=== PATIENT | male | born 1975 | race African-American/Black ===

== ENCOUNTER 2019-03-03 09:42 | Inpatient (IN) | payer MEDICARE ==
[2019-03-03] VITALS (7 sets, daily range): BP systolic 120–136; BP diastolic 88–101; Ht 170.2 cm; Wt 100.0 kg
[~2019-03-03] VITALS: Ht 170.2 cm; Wt 100.0 kg
--- NOTE | ~2019-03-03 | EC ---
PATIENT:MAIRA LYN DATE OF SERVICE: 03/03/19 SEX: M MEDICAL RECORD: [id number] DATE OF : [birth year] LOCATION:D.MS [place] AGE OF PATIENT: 43 ADMISSION DATE: 03/03/19 REFERRING PHYSICIAN: INTERPRETING PHYSICIAN: ALOK KRAFT MD ECHOCARDIOGRAM REPORT ECHO CHARGES 4 ECHO COMPLETE Date: 03/06/19 CLINICAL DIAGNOSIS: IV DRUG USER ECHOCARDIOGRAPHIC MEASUREMENTS (adult normal given) AC root (d.<3.7cm) 3.4 cm LV Septum d (<1.2 cm> 1.1 cm Valve Excursion 1.4 cm LV Septum (systole) 1.2 cm Left Atria (s.<4.0cm> 4.3 cm LVPW d(<1.2cm) 1.5 cm RV (d.<2.3cm) 3.4 cm LVPW (sytole) 1.8 cm LV diastole(<5.6CM) 5.7 cm MV E-F(>70mm/sec) cm LV systole 5.0 cm LVOT Diameter 1.9 cm MV exc.(>10mm) cm Est.ejection fraction (50-75%) % DOPPLER: LVIT cm/sec A 51 cm/sec E 36 cm/sec LA cm/sec RVSP 44.8 mmHg LVOT 45 cm/sec AOP1/2T m/s Asc. Ao 183 cm/sec RVOT 44 cm/sec RA cm/sec PA 75 cm/sec AV Gradient Peak 13.4 mmHg AV Mean 10.8 mmHg AV Area 0.3 cm MV Gradient Peak 2.0 mmHg MV Mean 0.8 mmHg MV Area cm COMMENTS: Railroad Construction Director: Jerri [facility] Coffee Plantation Worker: 1 Dr. Kraft TAPE# PACS Pericardial Effusion N DATE OF SERVICE: 03/06/2019 PROCEDURE: Echocardiogram. FINDINGS: 1. Left ventricular chamber size is dilated. Left ventricular systolic function is markedly reduced, overall ejection fraction 10% to 15%. 2. Left atrium is enlarged at 4.3 cm. Right atrium and right ventricular chamber sizes are as well moderately dilated. 3. Valvular structures have normal structure and motion. No evidence of ECHOCARDIOGRAM REPORT [id number] MAIRA LYN vegetative endocarditis. 4. Doppler interrogation reveals trace mitral regurgitation, moderate tricuspid regurgitation, no other valvular insufficiency or stenosis. Pulmonary systolic pressure is estimated at 45 mmHg. 5. Left ventricular thrombus is present at the apical segment. TRANSINT:[id number] Voice Confirmation ID: [id number] DOCUMENT ID: [id number] ALOK KRAFT MD CC: [id number] DICTATION DATE: 03/07/19 1245 ESTATE ADMINISTRATOR: 03/07/19 1310 DIS IN 03/07/19 [facility] [address] [place] [address]
[2019-03-03 10:41] LABS: BASOPHILS 0.3 % (0-2); EOSINOPHILS 1.3 % (0-7); HEMATOCRIT 41.9 % (42.0-54.0); IMMATURE GRANULOCYTES 0.3 % (0-5); LYMPHOCYTES 31.6 % (15-50); MCH 28.2 pg (26.0-34.0); MCHC 33.4 g/dL (31.0-37.0); MCV 84.5 fL (80.0-100.0); MEAN PLATELET VOLUME 11.1 fL (7.4-10.4); MONOCYTES 7.2 % (2-11); NEUTROPHILS 59.3 % (40-80); PLATELET COUNT 185 10x3/uL (130-400); RBC 4.96 10x6/uL (4.20-6.10); RDW 15.9 % (11.5-14.5); WBC 10.2 10x3/uL (4.8-10.8)
[2019-03-03 10:50] LABS: ALBUMIN 2.6 g/dL (3.4-5.0); ANION GAP 11.1 mmol/L (8-16); BILIRUBIN - TOTAL 0.54 mg/dL (0.2-1.3); CALCIUM 8.1 mg/dL (8.5-10.1); CARBON DIOXIDE 26.8 mmol/L (21.0-32.0); CREATININE - SERUM 1.4 mg/dL (0.6-1.3); POTASSIUM - SERUM 4.9 mmol/L (3.5-5.1)
[2019-03-03 11:04] LABS: APPEARANCE CLEAR (CLEAR); BILIRUBIN NEGATIVE (NEGATIVE); COLOR YELLOW (YELLOW); GLUCOSE NEGATIVE (NEGATIVE); KETONE NEGATIVE (NEGATIVE); NITRITE NEGATIVE (NEGATIVE); PROTEIN NEGATIVE (NEGATIVE)
[2019-03-03 11:05] LABS: AMORPHOUS SEDIMENT <1+ /lpf (NONE SEEN); EPITHELIAL CELLS 0-5 /hpf (0-5); RED CELLS - URINE 0-5 /hpf (0-5)
[2019-03-03 11:09] LABS: TROPONIN-I 1.039 ng/mL (0.000-0.060)
[2019-03-03] MEDS ORDERED: BENZTROPINE MESY1 MG PO (12:55)
[2019-03-03] MEDS ORDERED: HALOPERIDOL2 MG PO (12:56)
[2019-03-03] MEDS ORDERED: PRINIVIL10 MG PO (12:56)
[2019-03-03] MEDS ORDERED: SEROQUEL50 MG PO (12:58)
[2019-03-03] MEDS ORDERED: ZYPREXA15 MG PO (12:58)
--- NOTE | 2019-03-03 19:00 | NUR ---
REPORT RECEIVED AND CARE OF PT ASSUMED. PT LYING IN SUPINE POSITION WITH EYES CLOSED. IV IN RIGHT AC PATENT WITH NS INFUSING AT 100 ML/HR. WILL MONITOR FOR NEEDS.
--- NOTE | 2019-03-03 20:17 | NUR ---
HS MEDICATION GIVEN. FSBS 131 THIS CHECK. GAVE VANILLA MILKSHAKE FOR HS SNACK. WILL CONTINUE TO MONITOR FOR NEEDS.
--- NOTE | 2019-03-03 23:15 | NUR ---
PT ASSISTED WITH SET UP TO GIVE HIMSELF A SPONGE BATH.
--- NOTE | 2019-03-04 00:20 | NUR ---
GAVE NORCO 5 PO PER PRN ORDER FOR C/O CHRONIC PAIN "ALL OVER". WILL MONITOR FOR EFFECTIVENESS.
[2019-03-04 00:57] VITALS: BP 114/98
--- NOTE | 2019-03-04 02:32 | NUR ---
PT C/O SHORTNESS OF BREATH. SPO2 99% ON ROOM AIR. CALLED RT AND REQUESTED UPDRAFT TREATMENT.
--- NOTE | 2019-03-04 07:37 | NUR ---
ALERT AND ORIENTED. LUNGS CLEAR BILATERALLY IN ALL AMAYA. HEART SOUNDS S1 AND S2 HEARD IN ALL AMAYA. BOWEL SOUNDS ACTIVE X 4. SKIN INTACT WITHOUT REDNESS. DENIES PAIN. DENIES NEEDS. IV TO RIGHT AC PATENT WITHOUT REDNESS. BED LOW. CALL HENAO AND PERSONAL ITEMS IN REACH. WILL CONTINUE TO MONITOR.
--- NOTE | 2019-03-04 08:00 | NUR ---
LYING IN BED,WITHOUT NEEDS.CALL LIGHT IN REACH
[2019-03-04 08:46] LABS: BASOPHILS 0.1 % (0-2); EOSINOPHILS 0 % (0-7); HEMATOCRIT 43.7 % (42.0-54.0); IMMATURE GRANULOCYTES 0.7 % (0-5); LYMPHOCYTES 12.6 % (15-50); MCH 28.6 pg (26.0-34.0); MCHC 34.3 g/dL (31.0-37.0); MCV 83.4 fL (80.0-100.0); MEAN PLATELET VOLUME 10.9 fL (7.4-10.4); MONOCYTES 7.2 % (2-11); NEUTROPHILS 79.4 % (40-80); RBC 5.24 10x6/uL (4.20-6.10); RDW 15.4 % (11.5-14.5)
[2019-03-04 08:50] LABS: ANION GAP 15.7 mmol/L (8-16); CARBON DIOXIDE 20.3 mmol/L (21.0-32.0); CREATININE - SERUM 1.3 mg/dL (0.6-1.3)
[2019-03-04 09:06] LABS: PLATELET COUNT 144 10x3/uL (130-400); WBC 14.4 10x3/uL (4.8-10.8)
[2019-03-04 09:11] VITALS: BP 138/105
--- NOTE | 2019-03-04 10:53 | NUR ---
RESTING IN BED. DENIES PAIN. DENIES NEEDS. WILL CONTINUE TO MONITOR.
[2019-03-04 11:52] VITALS: BP 142/100
--- NOTE | 2019-03-04 12:10 | NUR ---
PT C/O OF GENERALIZED PAIN RATING 10/10 ON PAIN SCALE. WAS MEDICATED WITH NORCO PER ORDERS. C/L IN REACH AT BEDSIDE.
--- NOTE | 2019-03-04 12:30 | MORECARE ---
CASE MANAGEMENT DISCHARGE SUMMARY PATIENT: MAIRA LYN UNIT: [id number] ADM DATE: 03/03/19 AGE: 43 : [birth year] SEX: M ROOM/BED: D.2229 AUTHOR: CARIE ENGLAND PHYSICIAN: REFERRING PHYSICIAN: JULITA CORTEZ MD DATE OF SERVICE: 03/04/19 Discharge Plan Patient Name: MAIRA LYN [facility] [facility] 1975 Planned Disposition: Home Anticipated Discharge Date: Discharge Date: Expected LOS: Initial Reviewer: ANA MARÍA Initial Review Date: 03/04/2019 Generated: 03/04/19 1:30 pm DCPIA - Discharge Planning Initial Assessment Updated by ANA MARÍA: Hamida Borrero on 03/04/19 12:29 pm * Is the patient Alert and Oriented? Yes * How many steps to enter\exit or inside your home? * PCP NONE * Pharmacy [facility] * Preadmission Environment Home with Family * ADLs Independent * List name and contact numbers for known caregivers / representatives who currently or will assist patient after discharge: SISTER KAILEE \RIKI * Verbal permission to speak to the caregivers and representatives has been obtained from the patient. N/A * Additional services required to return to the preadmission environment? No * Can the patient safely return to the preadmission environment? Yes * Has this patient been hospitalized within the prior 30 days at any hospital? No Patient Name: MAIRA LYN Page [phone] at 1230 All edits/amendments must be made on the electronic document DICTATION DATE: 03/04/19 1230 PRICING ASSOCIATE: JOSE 03/04/19 1230 RPT#: [id number] DC DATE: STATUS: ADM IN [facility] [address] [place] [address] END OF REPORT
--- NOTE | 2019-03-04 12:38 | MORECARE ---
CASE MANAGEMENT DISCHARGE SUMMARY PATIENT: MAIRA LYN UNIT: [id number] ADM DATE: 03/03/19 AGE: 43 : 76 SEX: M ROOM/BED: D.2229 AUTHOR: TOMÁSDOC PHYSICIAN: REFERRING PHYSICIAN: JULITA CORTEZ MD DATE OF SERVICE: 03/04/19 Discharge Plan Patient Name: MAIRA LYN Facility: [facility] : 1975 Planned Disposition: Home Anticipated Discharge Date: Discharge Date: Expected LOS: Initial Reviewer: [email or web address] Initial Review Date: 03/04/2019 Generated: 03/04/19 1:38 pm Comments DCP- Discharge Planning Updated by [email or web address]: Hamida Borrero on 03/04/19 11:[address] Patient Name: MAIRA LYN Admission Status: ER Accout number: [id number] Admission Date: 03-03-2019 : 1975 Admission Diagnosis: Attending: JULITA CORTEZ Current LOS: 1 Anticipated DC Date: Planned Disposition: Home Primary Insurance: MEDICARE A & B Discharge Planning Comments: CM MET WITH PT AFTER VERBAL CONSENT TO DO INITIAL CM ASSESSMENT. CM EXPLAINED THE ROLE OF A CM AND SERVICES AVAILABLE LIKE HOME HEALTH, REHAB AND DME. PT STATED HE WILL RETURN HOME WITH . PT FEELS THIS IS A SAFE DC PLAN AND DENIES AND CM NEEDS AT THIS TIME. STATES HE USES NO DME AND TAKES CARE OF HIMSELF. CM WILL CONTINUE TO FOLLOW. Medical Historian: Hamida Borrero DCPIA - Discharge Planning Initial Assessment Updated by [email or web address]: Hamida Borrero on 03/04/19 12:31 pm * Is the patient Alert and Oriented? Yes * How many steps to enter\exit or inside your home? * PCP NONE * Pharmacy [facility] * Preadmission Environment Home with Family * ADLs Independent * List name and contact numbers for known caregivers / representatives who currently or will assist patient after discharge: SISTER KAILEE \RIKI * Verbal permission to speak to the caregivers and representatives has been obtained from the patient. N/A * Additional services required to return to the preadmission environment? No * Can the patient safely return to the preadmission environment? Yes * Has this patient been hospitalized within the prior 30 days at any hospital? No Last DP export: 03/04/19 11:30 a Patient Name: MAIRA LYN Page [phone] at 1238 All edits/amendments must be made on the electronic document DICTATION DATE: 03/04/19 1238 WOOL DYER: JOSE 03/04/19 1238 RPT#: [id number] DC DATE: STATUS: ADM IN [facility] [address] [place] [address] END OF REPORT
--- NOTE | 2019-03-04 14:36 | NUR ---
RESTING IN BED. DENIES NEEDS. WILL CONTINUE TO MONITOR.
--- NOTE | 2019-03-04 16:11 | NUR ---
PATIENT GIVEN WARM PRUNE JUICE PER REQUEST TO HELP BOWELS MOVE.
--- NOTE | 2019-03-04 16:48 | NUR ---
BLOOD SUGAR 62. REFUSED PEANUT BUTTER CRACKERS. STATES WILL DRINK MILK. WILL CONTINUE TO MONITOR.
--- NOTE | 2019-03-04 17:22 | NUR ---
REFUSED BLOOD SUGAR RECHECK. STATES SUGAR RUNS LOW AND IS DRINKING MILK. YELLING FOR PAIN MEDICATION. NOT DUE UNTIL 1845. EDUCATION PROVIDED.
--- NOTE | 2019-03-04 17:27 | NUR ---
SITTING IN CHAIR AT BEDSIDE. PLACED ON FALL PRECAUTIONS. CALL HENAO AND PERSONAL ITEMS IN REACH. WILL CONTINUE TO MONITOR.
--- NOTE | 2019-03-04 18:47 | NUR ---
PATIENT SLEEPING AFTER NO REST ALL DAY. DID NOT WANT TO WAKE FOR PAIN PILL. WILL GIVE NEXT DOSE.
--- NOTE | 2019-03-04 20:35 | NUR ---
REC'D. CHGE OF SHIFT VOMITTING IN FLOOR STATES HOLD ME PLEASE.COMPLETE BATH LINENS CHGED.EMESIS LITE DEEPAK MELGOZA WILL CONTINUE TO MONITOR FOR ANY CHGES AND FOLLOW CURRENT PLAN OF CARE
[2019-03-04 21:44] VITALS: BP 145/103
[2019-03-05 01:11] VITALS: BP 145/99
--- NOTE | 2019-03-05 07:15 | NUR ---
ALERT AND ORIENTED. LUNGS CLEAR BILATERALLY IN ALL AMAYA. HEART SOUNDS S1 AND S2 HEARD IN ALL AMAYA. BOWEL SOUNDS ACTIVE X 4. SKIN INTACT WITHOUT REDNESS. RIGHT ANKLE SWOLLEN. STATES PAIN IN ABD. ABD US THIS AM. DENIES NEEDS. BED LOW. FALL PRECAUTIONS IN PLACE. CALL HENAO AND PERSONAL ITEMS IN REACH. WILL CONTINUE TO MONITOR.
[2019-03-05 07:44] LABS: BASOPHILS 0.2 % (0-2); EOSINOPHILS 0.1 % (0-7); HEMATOCRIT 41.5 % (42.0-54.0); HEMOGLOBIN 14.1 g/dL (13.5-17.5); IMMATURE GRANULOCYTES 0.5 % (0-5); LYMPHOCYTES 25.5 % (15-50); MCH 28.4 pg (26.0-34.0); MCV 83.5 fL (80.0-100.0); MEAN PLATELET VOLUME 11.8 fL (7.4-10.4); MONOCYTES 9.4 % (2-11); NEUTROPHILS 64.3 % (40-80); PLATELET COUNT 119 10x3/uL (130-400); RBC 4.97 10x6/uL (4.20-6.10); RDW 15.6 % (11.5-14.5); WBC 11.6 10x3/uL (4.8-10.8)
[2019-03-05 08:43] LABS: ALBUMIN 2.5 g/dL (3.4-5.0); ANION GAP 18.3 mmol/L (8-16); BILIRUBIN - TOTAL 1.75 mg/dL (0.2-1.3); CALCIUM 8.1 mg/dL (8.5-10.1); CARBON DIOXIDE 18.7 mmol/L (21.0-32.0); CREATININE - SERUM 1.8 mg/dL (0.6-1.3); PROTEIN - SERUM 5.5 g/dL (6.4-8.2)
[2019-03-05 08:56] VITALS: BP 128/93
--- NOTE | 2019-03-05 09:36 | NUR ---
PATIENT SLEEPING. WILL CONTINUE TO MONITOR.
--- NOTE | 2019-03-05 10:34 | NUR ---
CALLED ULTRASOUND PER PATIENT REQUEST TO ASK TIME FOR ULTRASOUND. STATED WILL BE BEFORE LUNCH.
--- NOTE | 2019-03-05 12:30 | NUR ---
IV TO RIGHT AC PULLED OUT. PATIENT STATED COULD ATTEMPT TO RESITE "LATER."
[2019-03-05 12:50] LABS: ALBUMIN 2.4 g/dL (3.4-5.0); ANION GAP 15.1 mmol/L (8-16); BILIRUBIN - TOTAL 1.53 mg/dL (0.2-1.3); CARBON DIOXIDE 20.5 mmol/L (21.0-32.0); CREATININE - SERUM 1.7 mg/dL (0.6-1.3); POTASSIUM - SERUM 5.6 mmol/L (3.5-5.1)
--- NOTE | 2019-03-05 13:22 | NUR ---
MARKY CARABALLO ATTEMPTED TO SITE PATIENT'S IV. PATIENT STATED CAN TRY AFTER HIS NAP. WILL TRY AGAIN LATER.
--- NOTE | 2019-03-05 14:14 | NUR ---
REFUSES NEW IV. STATES CAN TRY TOMORROW. EDUCATION PROVIDED THAT PATIENT HAS ANTIBITOTICS THROUGH IV. STATES NOT GETTING NEW IV TODAY.
[2019-03-05 14:20] LABS: APTT 32.4 SECONDS (22.8-39.4); INR 2.77 (0.85-1.17); PROTIME 28.5 SECONDS (11.6-15.0)
--- NOTE | 2019-03-05 14:21 | NUR ---
RESTING IN BED. DENIES NEEDS. WILL CONTINUE TO MONITOR.
--- NOTE | 2019-03-05 14:27 | NUR ---
EDUCATION PROVIDED ON NEED FOR UA. STATED WILL USE URINAL AND IS NOT GETTING IN AND OUT CATH. TWO CUPS WATER AND URINAL IN ROOM.
--- NOTE | 2019-03-05 14:54 | NUR ---
LAB STATED COULD NOT FIND UDS ORDER. REORDER PLACED AND COLLECTED.
[2019-03-05 15:07] LABS: UDS - AMPHET POSITIVE QUAL (NEGATIVE); UDS - BARB NEGATIVE QUAL (NEGATIVE); UDS - BENZO NEGATIVE QUAL (NEGATIVE); UDS - COCAINE POSITIVE QUAL (NEGATIVE); UDS - OPIATE POSITIVE QUAL (NEGATIVE); UDS - PCP NEGATIVE QUAL (NEGATIVE); UDS - THC NEGATIVE QUAL (NEGATIVE)
--- NOTE | 2019-03-05 15:13 | NUR ---
PATIENT STATES DOES NOT WANT NURSE TO BRING ARIELLE RIOS.
--- NOTE | 2019-03-05 15:16 | NUR ---
YANNA NOTIFIED OF POSITIVE UDS. NO FURTHER ORDERS AT THIS TIME. SCRAP PILER ALEJA NOTIFIED. PATIENT HAS NOT HAD VISITORS. WAITING FURTHER ORDERS.
--- NOTE | 2019-03-05 15:19 | NUR ---
22 GAUGE IV STARTED IN RIGHT AC REQUESTED PER PATIENT X 1 STICK. GOOD RETURN, NO EDEMA OR REDNESS AT SITE SECURED WITH TEGADERM AND FLUSHED WIHTOUT DIFFICULTY. SALINE LOCKED.
--- NOTE | 2019-03-05 15:27 | NUR ---
REQUESTED BLOOD SUGAR CHECK EARLY. BS 147. DENIES FURTHER NEEDS.
--- NOTE | 2019-03-05 16:04 | NUR ---
REFUSES TO LET DEALER SALES MANAGER MILANA CHECK VITAL SIGNS.
--- NOTE | 2019-03-05 17:21 | NUR ---
CALL TO KITCHEN FOR CHICKEN SALAD PER PT REQUEST.
--- NOTE | 2019-03-05 17:34 | NUR ---
MOM AND FAMILY TO VISIT.
[2019-03-05 22:12] VITALS: BP 133/102
[2019-03-06 01:00] VITALS: BP 129/96
--- NOTE | 2019-03-06 03:48 | NUR ---
I have reviewed this patient and I concur with the Shift Assessment completed by the Licensed Practical Nurse today this shift.
[2019-03-06 06:25] LABS: BASOPHILS 0.1 % (0-2); EOSINOPHILS 0.3 % (0-7); HEMATOCRIT 39.2 % (42.0-54.0); HEMOGLOBIN 13.3 g/dL (13.5-17.5); IMMATURE GRANULOCYTES 0.3 % (0-5); LYMPHOCYTES 30.4 % (15-50); MCH 28.1 pg (26.0-34.0); MCHC 33.9 g/dL (31.0-37.0); MCV 82.9 fL (80.0-100.0); MEAN PLATELET VOLUME 11.6 fL (7.4-10.4); NEUTROPHILS 57.9 % (40-80); RBC 4.73 10x6/uL (4.20-6.10); RDW 15.4 % (11.5-14.5); WBC 9.8 10x3/uL (4.8-10.8)
[2019-03-06 06:27] LABS: PLATELET COUNT 80 10x3/uL (130-400)
[2019-03-06 06:35] VITALS: BP 146/93
[2019-03-06 06:46] LABS: INR 2.75 (0.85-1.17); PROTIME 28.3 SECONDS (11.6-15.0)
[2019-03-06 07:13] LABS: ALBUMIN 2.5 g/dL (3.4-5.0); BILIRUBIN - TOTAL 1.55 mg/dL (0.2-1.3); CALCIUM 8.1 mg/dL (8.5-10.1); CARBON DIOXIDE 20.6 mmol/L (21.0-32.0); CREATININE - SERUM 1.6 mg/dL (0.6-1.3); POTASSIUM - SERUM 5.6 mmol/L (3.5-5.1); PROTEIN - SERUM 5.5 g/dL (6.4-8.2)
[2019-03-06 09:19] LABS: PLATELET ESTIMATE DECREASED
[2019-03-06 10:10] LABS: HEPATITIS C ANTIBODY <0.1 S/CO RAT (0.0-0.9)
--- NOTE | 2019-03-06 16:38 | NUR ---
PT STANDING IN BATHROOM OVER TOILET WITHOUT CLOTHES/GOWN ON. PT IS REFUSING GOWN AT THIS TIME. PT ASSISTED BACK TO BED AFTER VOIDING. PT IS AAO X 4 BUT IS HAVING DIFFICULTY UNDERSTANDING NPO POLICY. PT EDUCATED ON NPO POLICY AND REASONING FOR NPO ORDER. PT VERBALIZES UNDERSTANDING. PT RESPIRATIONS ARE EVEN AND UNLABORED. PT DENIES PRESENCE OF PAIN AT THIS TIME. PT DENIES PRESENCE OF N/V. BED ALARM IS ON AND WORKING. PT DENIES FURTHER NEEDS. BED IS IN THE LOWEST POSITION. CALL LIGHT AND BEDSIDE TABLE ARE WITHIN REACH. SIDE RAILS X 2. WILL CONT TO MONITOR.
[2019-03-06 16:40] VITALS: BP 113/59; BP 118/92
--- NOTE | 2019-03-06 18:58 | NUR ---
C/O INABILITY TO URINATE PT WAS BLADDER SCAN AT THIS TIME WITH RESULTS OF 54 ML NOTED. DID AN IN/OUT CATH USING FIRE MANAGEMENT OFFICER WITH 100 ML OUT. PT IS NOTED TO HAVE PENILE SWELLING AND CONTINUE TO C/O PAIN. WILL INFORMED ON COMING NURSE. C/L IN REACH AT BEDSIDE.
--- NOTE | 2019-03-06 21:18 | NUR ---
SITTING UP IN CHAIR AT BEDSIDE. RESP EVEN AN UNLABORED. NO DISTRESS NOTED. CL IN REACH
[2019-03-06 22:05] VITALS: BP 134/92
--- NOTE | 2019-03-07 00:15 | NUR ---
PATIENT REQUESTING PAIN MED. EXPLAINED TO PATIENT I WOULD NEED TO RESTART IV TO GIVE HIS PAIN MED. REFUSES TO HAVE IV RESTARTED. CALL PLACED TO [place] Y[facility] FOR PO PAIN MED. HEATER INSTALLER STATES WILL COME BY TO EVALUTATE PATIENT.
--- NOTE | 2019-03-07 00:20 | NUR ---
PATIENT AT DESK DEMANDING PAPERS TO SIGN SO HE CAN GO HOME. ATTEMPTED TO EXPLAIN TO PATIENT INSURANCE MAY NOT PAY FOR THIS VISIT AND THIS NURSE WOULD HAVE TO NOTIFY DOCTOR BEFORE I COULD LET HIM LEAVE.CALL PLACED TO KALYAN RAINES. WILL COME TALK TO PATIENT.
--- NOTE | 2019-03-07 00:30 | NUR ---
KALYAN RAINES HERE TALKING WITH PATIENT. EXPLAINED NEED FOR HIM TO STAY AT HOSPITAL. REVIEWED LAB AND PHYSICIAN DOCUMENTATION.PATIENT CONTINUES TO INSIST ON LEAVING. STATES HE WILL FOLLOW UP WITH HIS DOCTOR TOMORROW. CONTINUES TO ASK FOR AMA PAPERS.KAISER RAINES INFORMED PATIENT HIS LEAVING WOULD BE AGAINST MEDICAL ADVICE. PATIENT STATES UNDERSTANDING BUT HE STILL WANTS TO LEAVE. CARE MANAGEMENT ASSISTANT NOTIFIED. AMA PAPERS SIGNED PER PATIENT.PATIENT LEFT FLOOR WITH NO DISTRESS NOTED.
--- NOTE | 2019-03-07 01:15 | NUR ---
I have reviewed this patient and I concur with the Shift Assessment completed by the Licensed Practical Nurse today this shift.
[2019-03-07 11:09] LABS: ANA REFLEX - DIRECT Negative (Negative)
[2019-03-09 18:07] LABS: MITOCHONDRIAL ANTIBODY <20.0 Units (0.0-20.0); SMOOTH MUSCLE ABS (ACTIN) 8 Units (0-19)
--- NOTE | 2019-03-11 13:55 | CN ---
PATIENT NAME:MAIRA LYN MEDICAL RECORD: [id number] : [birth year] LOCATION:D.MS [facility]2229 ADMIT DATE: 03/03/19 ACCOUNT: [id number] CONSULTING PHYSICIAN: CHAYITO ZEPEDA MD REFERRING PHYSICIAN: JULITA CORTEZ MD DATE OF CONSULTATION: 03/03/2019 HISTORY OF PRESENT ILLNESS: A 43-year-old gentleman with no known cardiovascular history. He was admitted with abdominal pain for approximately 2-5 days by his report. He presented with cough, fever, and chills 5-7 days ago. Also some increased dyspnea, coughing, and subjective fever. He has history of hypertension and diabetes mellitus. No history of coronary artery disease. He was found to have elevated troponin. We are asked to see him concerning his cardiovascular status. PAST MEDICAL HISTORY: Includes; 1. History of hypertension. 2. Hyperlipidemia. MEDICATIONS: Include lisinopril 10 mg p.o. daily, Haldol 2 mg p.o. at bedtime, and Cogentin 1 mg p.o. b.i.d. SOCIAL HISTORY: Smokes about a pack a day. Social drinker. Occasional marijuana use. No set exercise program. ALLERGIES: None known. REVIEW OF SYSTEMS: The patient reports easy bruising but reports no swollen glands. The patient reports no fever, no night sweats, no significant weight gain, no significant weight loss. No significant exercise tolerance. The patient reports no dry eyes, no irritation, no vision change. Patient reports no difficulty hearing and no ear pain. Patient reports no frequent nose bleeds or nose and sinus problems. Patient reports on arm pain on exertion. No shortness of breath while lying down. No history of heart murmur. Patient reports no cough, no wheezing or coughing up blood. Patient reports no abdominal pain, no vomiting. Normal appetite. No diarrhea and not vomiting blood. No nausea and no constipation. Patient reports no incontinence. No difficulty urinating. No hematuria. No increased frequency. Patient reports no muscle aches. No weakness, no arthralgias, no back pain. No swelling of the extremities. Patient reports no abnormal mole, no jaundice, no rashes. Reports no loss of consciousness. No weakness and no numbness. No seizures, dizziness, or headaches. The patient reports no depression, no sleep disturbance, feeling safe in a relationship and no alcohol abuse. Patient reports on fatigue. Reports no runny nose or sinus pressure. No itching, no hives, and no frequent sneezing. PHYSICAL EXAMINATION: GENERAL: Pleasant gentleman, appears stated age. VITAL SIGNS: Blood pressure 131/101. Pulse 110 and regular. HEENT: Normocephalic and atraumatic. NECK: No bruits are noted. HEART: Regular. S4 gallop noted. LUNGS: Expiratory air excursion. ABDOMEN: Soft and nontender. EXTREMITIES: Pulses 2+. No edema. CONSULT REPORT [id number] MAIRA LYN DIAGNOSTIC DATA: ECG shows possible LVH. IMPRESSION: Troponin elevation. This may be secondary to decreased clearance from elevated creatinine and intravascular volume depletion plus somewhat of a strain pattern. We will follow serial enzymes and check echocardiographic study. Further recommendations based on above. TRANSINT:[id number] Voice Confirmation ID: [id number] DOCUMENT ID: [id number] CHAYITO ZEPEDA MD at 1355 CC: [id number] DICTATION DATE: 03/03/191746 OPTOMETRIST OWNER: 03/03/19 185 DIS IN 03/07/19 [facility] [address] [place] [address]
== END 2019-03-07 00:50 | disposition left against medical advice (07) | DRG 441 ==
LOC: OBSVTIME → D.ER 09:42 → D.MS 13:17 → OBSVTIME 13:17 → D.ER 13:17 → D.MS 14:19
PROVIDERS: Family Medicine; Internal Medicine Gastroenterology; ADMIT Internal Medicine Nephrology; ATTEND Internal Medicine Nephrology
DX: K72.00 Acute and subacute hepatic failure without coma (principal); J18.9 Pneumonia, unspecified organism; N17.9 Acute kidney failure, unspecified; I31.3 Pericardial effusion (noninflammatory); F17.213 Nicotine dependence, cigarettes, with withdrawal; N10 Acute pyelonephritis; E11.65 Type 2 diabetes mellitus with hyperglycemia; R16.0 Hepatomegaly, not elsewhere classified; I25.10 Atherosclerotic heart disease of native coronary artery without angina pectoris; I10 Essential (primary) hypertension; E78.5 Hyperlipidemia, unspecified; E86.0 Dehydration; J30.9 Allergic rhinitis, unspecified; R79.89 Other specified abnormal findings of blood chemistry

== ENCOUNTER 2019-04-01 19:26 | Inpatient (IN) | payer MEDICARE ==
[~2019-04-01] VITALS: Ht 170.2 cm; Wt 101.0 kg
[~2019-04-01 19:26] MED LIST: BENZTROPINE MESY1 MG PO; HALOPERIDOL2 MG PO; PRINIVIL10 MG PO; SEROQUEL50 MG PO; ZYPREXA15 MG PO
[2019-04-01 19:50] VITALS: BP 134/82
[2019-04-01 20:07] LABS: BASOPHILS 0.7 % (0-2); EOSINOPHILS 1.6 % (0-7); HEMOGLOBIN 12.9 g/dL (13.5-17.5); IMMATURE GRANULOCYTES 0.1 % (0-5); LYMPHOCYTES 29.5 % (15-50); MCH 27.2 pg (26.0-34.0); MCHC 33.9 g/dL (31.0-37.0); MEAN PLATELET VOLUME 10.7 fL (7.4-10.4); MONOCYTES 4.4 % (2-11); NEUTROPHILS 63.7 % (40-80); RBC 4.75 10x6/uL (4.20-6.10); WBC 8.5 10x3/uL (4.8-10.8)
--- NOTE | 2019-04-01 20:15 | NUR ---
PT PROVIDED BLANKET FOR COMFORT.
[2019-04-01 20:17] LABS: INR 1.32 (0.85-1.17); PROTIME 15.8 SECONDS (11.6-15.0)
[2019-04-01 20:19] LABS: PLATELET COUNT 216 10x3/uL (130-400)
--- NOTE | 2019-04-01 20:25 | NUR ---
PT SIGNED RELEASE OF MEDICAL INFORMATION FORM TO REQUEST RECORDS FROM [facility] FOR RECENT STAY.
[2019-04-01 20:42] VITALS: BP 131/98
[2019-04-01 20:50] LABS: ALBUMIN 2.9 g/dL (3.4-5.0); ALKALINE PHOSPHATASE 172 U/L (46-116); ALT (SGPT) 160 U/L (10-68); BILIRUBIN - TOTAL 1.23 mg/dL (0.2-1.3); CALC OSMOLALITY 275 mosm/kg (275-300); CALCIUM 8.7 mg/dL (8.5-10.1); CARBON DIOXIDE 27.5 mmol/L (21.0-32.0); CHLORIDE - SERUM 102 mmol/L (98-107); CREATININE - SERUM 1.8 mg/dL (0.6-1.3); GLUCOSE 95 mg/dL (74-106); POTASSIUM - SERUM 3.6 mmol/L (3.5-5.1); PROTEIN - SERUM 7.4 g/dL (6.4-8.2); SODIUM 136 mmol/L (136-145); UREA NITROGEN 23 mg/dL (7-18); eGFR NON AFRICAN AMERICAN 44 mL/min (90-120)
[2019-04-01 21:07] LABS: CKMB 14.1 U/L (0.0-3.6); MAGNESIUM - SERUM 1.8 mg/dL (1.8-2.4)
[2019-04-01 21:12] LABS: CREATINE KINASE 1037 UL (21-232)
--- NOTE | 2019-04-01 21:25 | NUR ---
PT RESTING ON BED. NO S/S OF ACUTE DISTRESS NOTED.
[2019-04-01 21:30] VITALS: BP 134/92
--- NOTE | 2019-04-01 22:15 | NUR ---
PT PROVIDED URINAL AND BLANKETS. PT DENIES FURTHER NEEDS AT THIS TIME.
[2019-04-02] VITALS (7 sets, daily range): BP systolic 115–139; BP diastolic 79–95; Ht 170.2 cm; Wt 101.0 kg
--- NOTE | 2019-04-02 00:50 | NUR ---
ADMITTED TO ROOM FROM ER ALERT AND ORIENTIATED, ORIENTIATED TO ROOM CALL LIGHT IN REACH SEE ASSESSMENT, TELEMENTRY PLACED, DENIES PAIN AT THIS TIME REPORTS SOMETIMES CHEST HURTS, REPORTS HAS NOT TAKEN ANY OF HIS HOME MEDS SINCE CAME HOME FROM HOSPITAL IN [place] STATES WAS ON HOSPICE BUT HAD TO GET OFF IT
--- NOTE | 2019-04-02 07:00 | NUR ---
RECEIVED REPORT. ASSUMED CARE OF PATIENT. CALL LIGHT WITHIN REACH. RESTING WITH EYES OPEN. NO DISTRESS. DENIES NEEDS AT THIS TIME.
[2019-04-02 07:03] LABS: BASOPHILS 0.5 % (0-2); EOSINOPHILS 1.4 % (0-7); HEMOGLOBIN 12.5 g/dL (13.5-17.5); IMMATURE GRANULOCYTES 0.2 % (0-5); LYMPHOCYTES 28.1 % (15-50); MCH 27.4 pg (26.0-34.0); MCHC 33.8 g/dL (31.0-37.0); MEAN PLATELET VOLUME 11.3 fL (7.4-10.4); MONOCYTES 8.3 % (2-11); NEUTROPHILS 61.5 % (40-80); PLATELET COUNT 208 10x3/uL (130-400); RBC 4.57 10x6/uL (4.20-6.10); RDW 16.5 % (11.5-14.5); WBC 8.1 10x3/uL (4.8-10.8)
[2019-04-02 07:08] LABS: ALBUMIN 2.8 g/dL (3.4-5.0); ALKALINE PHOSPHATASE 174 U/L (46-116); ALT (SGPT) 149 U/L (10-68); BILIRUBIN - TOTAL 1.56 mg/dL (0.2-1.3); CALC OSMOLALITY 277 mosm/kg (275-300); CALCIUM 8.8 mg/dL (8.5-10.1); CARBON DIOXIDE 26.1 mmol/L (21.0-32.0); CHLORIDE - SERUM 102 mmol/L (98-107); CKMB 10.8 U/L (0.0-3.6); GLUCOSE 103 mg/dL (74-106); MAGNESIUM - SERUM 1.7 mg/dL (1.8-2.4); POTASSIUM - SERUM 4.1 mmol/L (3.5-5.1); PROTEIN - SERUM 6.9 g/dL (6.4-8.2); SODIUM 137 mmol/L (136-145); UREA NITROGEN 24 mg/dL (7-18); eGFR NON AFRICAN AMERICAN 39 mL/min (90-120)
[2019-04-02 07:09] LABS: CREATINE KINASE 801 UL (21-232); TROPONIN-I 0.393 ng/mL (0.000-0.060)
--- NOTE | 2019-04-02 10:14 | NUR ---
PATIENT AT COMPUTER IN ROOM AGAIN TRYING TO GET BACK ON THE INTERNET TO ACCESS GLSSUBE. IT HAS NOW BLOCKED PATIENT FROM BEING ABLE TO ACCESS INTERNET FROM THE PATIENT ROOM.
--- NOTE | 2019-04-02 10:23 | NUR ---
SCDS- PATIENT REFUSED, HE IS UP OFTEN AMBULATING AROUND THE ROOM.
--- NOTE | 2019-04-02 10:37 | NUR ---
PATIENTS MOM CALLED TO CHECK ON HIM AND REQUESTED FAX NUMBER SO SHE CAN SEND [employer] PAPERS TO US. PROVIDED PATIENTS MOM WITH [phone] TO SEND IMPORTANT PAPERWORK VIA FAX TO US. THANKED Carmen RIKI FOR CALLING.
--- NOTE | 2019-04-02 14:10 | NUR ---
PATIENT REFUSED HIS NICOTINE PATCH.
--- NOTE | 2019-04-02 16:41 | NUR ---
FSBS 83. NO INSULIN PER SLIDING SCALE. VENOUS DOPPLER ULTRASOUND BEING COMPLETED AT BEDSIDE AT THIS TIME.
--- NOTE | 2019-04-02 17:38 | NUR ---
DOBUTAMINE DRIP INFUSING AT 14.9 ML/HOUR TO EQUAL 5MCG/KG/MIN PER PT WEIGHT OF 218.2 LB WHICH IS 99.18 KG. PATIENT WITH ATTENTION TOWARD TELEVISION AT THIS TIME. NO DISTRESS.
--- NOTE | 2019-04-02 21:45 | NUR ---
PT ALERT AND ORIENTED X4. RR EVEN AND UNLABORED. PT HAS A FORCEFUL DRY NON-PRODUCTIVE COUGH THAT HE STATES IS CAUSING HIS THROAT TO HURT. PT REQUESTED THROAT SPRAY. YANNA PACHECO NOTIFIED AND ORDER WAS GIVEN FOR SPRAY. YANNA PACHECO WAS ALSO NOTIFIED THAT PT HAS REFUSED TO TAKE ANY OF HIS PSYCH MEDS. PT STATES THAT HE DOES NOT NORMALLY TAKE THEM AND THAT THEY ARE MESSING UP HIS HEART. EDUCATED PT ABOUT MEDICATION AND CHF. PT WAS NOT WILLING TO LISTEN AND STATES HE WILL TAKE LASIX AND LOVANOX AND THATS IT. BED LOW CALL LIGHT WITHIN REACH. WILL CONTINUE TO MONITOR.
--- NOTE | 2019-04-02 22:15 | NUR ---
ANSWERED PT CALL LIGHT AND HE STATES HE CAN'T BREATH. O2-96% INSTRUCTED PT TO TAKE DEEP BREATHS. PT STATES, "I NEED OXYGEN." PROVIDED O2 AND PT REFUSED. BED LOW CALL LIGHT WITHIN REACH. WILL CONTINUE TO MONITOR.
[2019-04-03] VITALS: BP 118/89
--- NOTE | 2019-04-03 00:32 | NUR ---
BROUGHT IN THROAT SPRAY FOR PT. PT RESTING WITH EYES CLOSED RR EVEN AND UNLABORED. BED LOW CALL LIGHT WITHIN REACH. WILL CONTINUE TO MONITOR.
--- NOTE | 2019-04-03 02:11 | NUR ---
I have reviewed this patient and I concur with the Shift Assessment completed by the Licensed Practical Nurse today this shift.
[2019-04-03 04:00] VITALS: BP 124/83
[2019-04-03 05:27] LABS: BASOPHILS 0.8 % (0-2); EOSINOPHILS 0.5 % (0-7); HEMATOCRIT 34.9 % (42.0-54.0); HEMOGLOBIN 11.9 g/dL (13.5-17.5); IMMATURE GRANULOCYTES 0.3 % (0-5); LYMPHOCYTES 35.6 % (15-50); MCH 27.4 pg (26.0-34.0); MCHC 34.1 g/dL (31.0-37.0); MCV 80.4 fL (80.0-100.0); MEAN PLATELET VOLUME 11.4 fL (7.4-10.4); MONOCYTES 10.7 % (2-11); NEUTROPHILS 52.1 % (40-80); PLATELET COUNT 193 10x3/uL (130-400); RBC 4.34 10x6/uL (4.20-6.10); RDW 16.3 % (11.5-14.5); WBC 6.5 10x3/uL (4.8-10.8)
--- NOTE | 2019-04-03 05:39 | NUR ---
I have reviewed this patient and I concur with the Shift Assessment completed by the Licensed Practical Nurse today this shift.
--- NOTE | 2019-04-03 05:39 | NUR ---
I have reviewed this patient and I concur with the Shift Assessment completed by the Licensed Practical Nurse today this shift.
[2019-04-03 05:47] LABS: ANION GAP 11.9 mmol/L (8-16); CALCIUM 8.6 mg/dL (8.5-10.1); CARBON DIOXIDE 28.2 mmol/L (21.0-32.0); CREATININE - SERUM 2.1 mg/dL (0.6-1.3); MAGNESIUM - SERUM 1.5 mg/dL (1.8-2.4); POTASSIUM - SERUM 4.1 mmol/L (3.5-5.1)
--- NOTE | 2019-04-03 06:58 | NUR ---
ROUNDING DONE WITH URINE SAMPLE BEING COLLECTED AND SENT TO LAB ORDERED. PATIENT IS LAYING ON RIGHT SIDE. LARGE BROWN RECLINER PLACED IN ROOM PATIENT DID NOT HAVE ONE. ON HEART MONITOR SHOWING SR, HR 96. ON ROOM AIR. LEFT AC SEEN WITH DOBUTAMINE INFUSING AT 14.9. ON EP, K+ IS 4.1, MAG IS 1.5. ALREADY COVERED EXCEPT NEEDING ONE MORE AT 0745. DENIES ANY NEEDS. WILL CPOC.
[2019-04-03 09:07] VITALS: BP 126/85
[2019-04-03 09:15] LABS: APPEARANCE CLEAR (CLEAR); BACTERIA FEW /hpf (NONE SEEN); BILIRUBIN NEGATIVE (NEGATIVE); COLOR YELLOW (YELLOW); EPITHELIAL CELLS OCC /hpf (0-5); GLUCOSE NEGATIVE (NEGATIVE); HYALINE CAST RARE /lpf (NONE SEEN); KETONE NEGATIVE (NEGATIVE); MUCUS <1+ /lpf (NONE SEEN); NITRITE NEGATIVE (NEGATIVE); PROTEIN NEGATIVE (NEGATIVE); WHITE CELLS - URINE OCC /hpf (0-5)
--- NOTE | 2019-04-03 10:24 | NUR ---
CALLED TO ROOM WITH PATIENT STATING HE IS SHORT OF BREATH. ON ROOM AIR, O2 SAT IS 98%. PLACED BACK ON 2L PER NC THAT HE HAS NOT BEEN ON. STATES THAT HE IS BETTER NOW.
--- NOTE | 2019-04-03 10:45 | NUR ---
COMPLETE BED BATH AND LINEN CHANGE DONE. FAN OFFERED TO PATIENT AND HE WANTS IT. BOX FAN PLACED IN ROOM AND TURNED ON. STATES HE WANTS IT OFF NOW HE IS COLD.
--- NOTE | 2019-04-03 11:21 | NUR ---
CALLED TO ROOM WITH PATIENT WANTING ME TO CALL HIS MOTHR. HARRIS NUMBER. I CALLED AND LEFT TIMOTHY A MESSAGE TO PLEASE CALL HER SON AFTER LISTENING TO A PRETTY BIBLE VERSE. I RELAYED THIS TO THE PATIENT.
--- NOTE | 2019-04-03 11:32 | NUR ---
CALLED ROOM FOR ANOTHER PILLOW AND BLANKET. GIVEN.
--- NOTE | 2019-04-03 11:41 | NUR ---
CALLED TO ROOM PATIENT IS TELLING MARKY MISHRA THAT HE CAN'T BREATH. NASAL CANNULA IS OFF, O2 SAT IS 96% ON ROOM AIR. PATIENT TELLS ME THAT HE WAS "GETTING INTO A POSITION TO LSLEEP AND I CAN'T WITH THE OXYGEN ON". WILL CPOC AND FOLLOW.
--- NOTE | 2019-04-03 12:23 | NUR ---
ADRIANNE SMITH TRYING TO TAKE B/P ON PATIENT WHILE I AM IN THE ROOM. FIRST TIME WAS LOW IN RIGHT ARM SO SHE WAS GOING TO USE THE LEFT LEG IV IS IN LEFT AC. IT HAD TO PUMP UP X 3 TO TRY AND TAKE IT. PATIENT IS GETTING ADAMENT ABOUT IT TO BE TAKEN OFF. ADRIANNE SMITH TELLS HIM THAT SHE WILL LET HIM REST AND COME BACK AND TAKE A LAUREN. HE REFUSED.
--- NOTE | 2019-04-03 12:48 | NUR ---
I CALLED SEDRICK PEREZ APN FOR SOMETHING FOR PAIN THE PATIENT STATES THAT HIS ABDOMEN IS PAINFUL 10/10 FROM THE SHOT FROM THIS AM AND THAT HE CAN'T EAT. SHE SAID TO GIVE HIM TYLENOL.
--- NOTE | 2019-04-03 13:00 | NUR ---
CALLED TO ROOM FOR PATIENT GIVE HIM HIS URINAL THAT IS ON THE TABLE OVER THE BED. HE ALSO WANTED ME TO HAND HIM THE PHONE.
--- NOTE | 2019-04-03 13:32 | NUR ---
1319-TYLENOL GIVEN FOR ABDOMINAL DISCOMFORT 05/16.
--- NOTE | 2019-04-03 16:10 | NUR ---
CALLED TO PATIENT ROOM WITH HIM ASKING ME TO CALL HIS MOTHER AGAIN. I DID AND TRANSFERRED THE CALL. NO INSULIN FOR BLOOD SUGAR OF 99.
--- NOTE | 2019-04-03 16:54 | NUR ---
DOBUTAMINE IS DECREASED TO 2.5 MCG/KG WHICH IS 7.44 CC/HR ORDERED.
--- NOTE | 2019-04-03 17:24 | NUR ---
CALLED TO ROOM WITH RAQUEL STATING THAT HIS IV CAME OUT. IT IS STILL IN. THERE IS SOME BLOOD ON HIS BEDCOVERS FROM HIM BENDING HIS LEFT ARM WHILE ON THE PHONE EVEN THOUGH I CONTINUED TO ASK HIM TO KEEP IT STRAIGHT (IN HIS LEFT AC). WILL CHANGE BED COVER AFTER HIM EATING. STATES THAT HE CAN'T EAT CAUSE "MY STOMACH IS SICK" EVEN THOUGH I HEARD HIM TELL PEOPLE ON THE PHONE THAT HE FELT GREAT. WILL CPOC.
[2019-04-03 17:37] VITALS: BP 127/90
--- NOTE | 2019-04-03 17:49 | NUR ---
TOP SHEET AND BED COVERS CHANGED.
--- NOTE | 2019-04-03 18:40 | NUR ---
CALLED TO ROOM PATIENT IS WANTING ME TO CALL HIS MOM AND NEEDING SOME DEODERANT. BOTH ARE DONE.
--- NOTE | 2019-04-03 19:14 | NUR ---
PT LAYING IN BED ALERT AND ORIENTED X4. PT RR EVEN AND UNLABORED. NO S/S OF DISTRESS AT THIS TIME. BED LOW CALL LIGHT WITHIN REACH WILL CONTINUE TO MONITOR.
--- NOTE | 2019-04-03 19:39 | NUR ---
PT 18G IV IN LEFT AC INFILTRATED. IV DC'D WITH CATHETER TIP IN PLACE. DOBUTAMINE DRIP STOPPED AT THIS TIME. WILL CONTINUE TO MONITOR.
[2019-04-04] VITALS: BP 119/90
[2019-04-04 04:00] VITALS: BP 111/85
[2019-04-04 06:38] LABS: BASOPHILS 0.1 % (0-2); EOSINOPHILS 0.3 % (0-7); IMMATURE GRANULOCYTES 0.1 % (0-5); LYMPHOCYTES 26.5 % (15-50); MCH 27.1 pg (26.0-34.0); MCHC 34.3 g/dL (31.0-37.0); MCV 79.2 fL (80.0-100.0); MEAN PLATELET VOLUME 11.7 fL (7.4-10.4); MONOCYTES 7.4 % (2-11); NEUTROPHILS 65.6 % (40-80); PLATELET COUNT 209 10x3/uL (130-400); RBC 4.42 10x6/uL (4.20-6.10); RDW 16.4 % (11.5-14.5); WBC 7.3 10x3/uL (4.8-10.8)
[2019-04-04 06:57] LABS: ANION GAP 15.4 mmol/L (8-16); CALCIUM 8.6 mg/dL (8.5-10.1); CREATININE - SERUM 2.1 mg/dL (0.6-1.3); POTASSIUM - SERUM 4.4 mmol/L (3.5-5.1)
[2019-04-04 07:01] LABS: MAGNESIUM - SERUM 1.9 mg/dL (1.8-2.4)
--- NOTE | 2019-04-04 07:51 | NUR ---
ROUNDING DONE WITH PATIENT LAYING ON RIGHT SIDE, HOB AT 30 DEGREES. ASKING WHEN HE WILL BE DISCHARGED. ON HEART MONITOR SHOWING SR, HR 86. ON ROOM AIR. RIGHT WRSIT SEEN WITH SALINE LOCK, ORANGE CAP IN USE. ON EP, LAB VALUES ARE GOOD THIS AM. WILL MONITOR.
--- NOTE | 2019-04-04 08:23 | NUR ---
PATIENT TO REFUSE NICOTINE PATCH AND COGENTIN.
[2019-04-04 09:55] VITALS: BP 102/55
--- NOTE | 2019-04-04 12:39 | NUR ---
PATIENT TO REFUSE INSULIN FOR GLUCOSE OF 152 EVEN WITH FAMILY AT BEDSIDE STATING THAT HE NEEDS TO TAKE IT. FAMILY HAS SOME CONCERNS THAT PATIENT WILL CONTINUE TO NOT TAKE HIS MEDS HE IS SUPPOSE TO. THEY ARE TRYING TO GET AN APARTMENT FOR HIM AND SOMEONE TO HELP GIVE HIM HIS MEDS.
[2019-04-04 12:45] VITALS: BP 115/81
--- NOTE | 2019-04-04 12:53 | NUR ---
Nutrition Follow-up: Fluctuating PO intake Diet: Diabetic Wt: 222# Last BM: 04/02 per chart Labs reviewed Meds reviewed Rec low Na diabetic diet. [place] food preferences within diet restrictions. RD following.
--- NOTE | 2019-04-04 15:54 | NUR ---
EVEN THOUGH PATIENT RECEIVED A BATH AND LINEN CHAGE PER THIS NURSE YESTERDAY AND ANOTHER ONE LAST NIGHT. HE WANTS ANOTHER ONE NOW. DONE.
--- NOTE | 2019-04-04 19:10 | NUR ---
AWAKE AND ALERT WITH IV SL PT ASKS FOR A FEW NEEDS AT THIS TIME AND I ASSIST WITH THOSE BED IS LOW AND LOCKED CALL LIGHT WITH PT SKIN IS WARM AND DRY PT ON RA AND LCTA
[2019-04-04 20:00] VITALS: BP 110/86
--- NOTE | 2019-04-04 21:17 | NUR ---
PT FIRST COMPLAINED OF CHEMICAL IN HIS EYES THEN SCREAMING HE CANT BREATH REFUSING ALL MEDS CAME INTO [address] WAY SCREAMING CHARGE NURSE AND EXTRUDING MACHINE OPERATOR NOTIFIED CHARGE NURSE ABLE TO TALK HIM DOWN SOME AND TOOK HIM TOWARD ICU WAITING AREA
--- NOTE | 2019-04-04 21:37 | NUR ---
SECURITY IS WITH PT IN ICU WAITING AREA MY CHARGE ATTEMPTED TO GIVE HIM HIS MEDS AND HE REFUSED FROM HER WELL
--- NOTE | 2019-04-05 03:24 | NUR ---
500 ML BOLUS OF NS ABOUT COMPLETE
--- NOTE | 2019-04-05 03:41 | NUR ---
I have reviewed this patient and I concur with the Shift Assessment completed by the Licensed Practical Nurse today this shift.
[2019-04-05 05:00] VITALS: BP 123/86
[2019-04-05 05:28] LABS: BASOPHILS 0.2 % (0-2); EOSINOPHILS 0.6 % (0-7); HEMOGLOBIN 11.9 g/dL (13.5-17.5); IMMATURE GRANULOCYTES 0.3 % (0-5); LYMPHOCYTES 27.1 % (15-50); MCH 27.5 pg (26.0-34.0); MEAN PLATELET VOLUME 11.7 fL (7.4-10.4); MONOCYTES 7.3 % (2-11); NEUTROPHILS 64.5 % (40-80); PLATELET COUNT 191 10x3/uL (130-400); RBC 4.32 10x6/uL (4.20-6.10); RDW 16.8 % (11.5-14.5)
[2019-04-05 05:32] LABS: WBC 9.5 10x3/uL (4.8-10.8)
[2019-04-05 05:41] LABS: CALCIUM 8.8 mg/dL (8.5-10.1); CARBON DIOXIDE 27.6 mmol/L (21.0-32.0); CREATININE - SERUM 2.3 mg/dL (0.6-1.3); POTASSIUM - SERUM 4.6 mmol/L (3.5-5.1)
--- NOTE | 2019-04-05 06:12 | NUR ---
PT IS ASKING THAT A FEMALE GIVE HIM A BATH . PT IS CAPABLE OF GIVING HIMSELF A BATH SO I INFORMED HIM HE NEEDED TO DO IT HIMSELF AT THIS POINT THE PT GOT IRATE AND TOLD ME NOT TO TAKE CARE OF HIM ANYMORE I WILL INFORM MY HS
--- NOTE | 2019-04-05 06:55 | NUR ---
REPORT RECEIVED. HE IS ASLEEP IN ROOM. RESP EVEN WITHOUT LABOR. CL IN REACH BED LOCKED AND IN LOWEST POSITION.
[2019-04-05 09:22] VITALS: BP 126/60
[2019-04-05] MEDS ORDERED: XARELTO20 MG PO (10:23)
[2019-04-05] MEDS ORDERED: COREG6.25 MG PO (10:24)
[2019-04-05] MEDS ORDERED: K-TAB10 MEQ PO (10:53)
[2019-04-05] MEDS ORDERED: LASIX40 MG PO (10:53)
--- NOTE | 2019-04-05 12:41 | MORECARE ---
CASE MANAGEMENT DISCHARGE SUMMARY PATIENT: MAIRA LYN UNIT: [id number] ADM DATE: 04/01/19 AGE: 43 : 77 SEX: M ROOM/BED: D.2101 AUTHOR: CARIE ENGLAND PHYSICIAN: REFERRING PHYSICIAN: JULITA CORTEZ MD DATE OF SERVICE: 04/05/19 Discharge Plan Patient Name: MAIRA LYN Facility: [facility]:[place] : 1975 Planned Disposition: Hospice Home Anticipated Discharge Date: 04/05/19 Discharge Date: Expected LOS: 4 Initial Reviewer: [email or web address] Initial Review Date: 04/05/2019 Generated: 04/05/19 1:41 pm Coverage Notice Reviewer: [id number] - Familia Rodriguez Notice Issued Date-Time: 04/05/2019 11:25 Notice Type: IM Discharge Notice Notice Delivered To: Patient Relationship to Patient: Tariff Clerk Name: Delivery Method: HAND - Hand Delivered Belle Days: Prior Verbal Notification: Recipient Understood Notice: Yes Recipient Signature: Yes Med Rec Note Co-signed by Attending: Coverage Notice Comment: Patient Name: MAIRA LYN Page [phone] at 1241 All edits/amendments must be made on the electronic document DICTATION DATE: 04/05/19 1241 NUCLEAR PLANT INSTRUMENT TECHNICIAN: JOSE 04/05/19 1241 RPT#: [id number] DC DATE: STATUS: ADM IN [place] [address] [place] [address] END OF REPORT
--- NOTE | 2019-04-05 12:48 | MORECARE ---
CASE MANAGEMENT DISCHARGE SUMMARY PATIENT: MAIRA LYN UNIT: [id number] ADM DATE: 04/01/19 AGE: 43 : 77 SEX: M ROOM/BED: D.2101 AUTHOR: CARIE ENGLAND PHYSICIAN: REFERRING PHYSICIAN: JULITA CORTEZ MD DATE OF SERVICE: 04/05/19 Discharge Plan Patient Name: MAIRA LYN Facility: [facility]:[place] : 1975 Planned Disposition: Home Anticipated Discharge Date: 04/05/19 Discharge Date: Expected LOS: 4 Initial Reviewer: [email or web address] Initial Review Date: 04/05/2019 Generated: 04/05/19 1:48 pm DCPIA - Discharge Planning Initial Assessment Updated by [email or web address]: Familia Rodriguez on 04/05/19 12:43 pm * Is the patient Alert and Oriented? Yes * How many steps to enter\exit or inside your home? NONE * PCP NONE [facility] [place], REFERRED PT STATES THERE ARE NO GOOD DOCTORS IN [place] * Pharmacy [facility] IN [place] * Preadmission Environment Home with Family * ADLs Independent * Equipment None * Other Equipment NO MEDICAL EQUIPMENT PROVIDER PREFERENCE * List name and contact numbers for known caregivers / representatives who currently or will assist patient after discharge: TIMOTHY LYN, MOTHER, * Verbal permission to speak to the caregivers and representatives has been obtained from the patient. Yes * Community resources currently utilized None * Please name any agencies selected above. NONE * Additional services required to return to the preadmission environment? No * Can the patient safely return to the preadmission environment? Yes * Has this patient been hospitalized within the prior 30 days at any hospital? No Coverage Notice Reviewer: [id number] - Familia Rodriguez Notice Issued Date-Time: 04/05/2019 11:25 Notice Type: IM Discharge Notice Notice Delivered To: Patient Relationship to Patient: Senior Oracle Pl Sql Developer Name: Delivery Method: HAND - Hand Delivered Belle Days: Prior Verbal Notification: Recipient Understood Notice: Yes Recipient Signature: Yes Med Rec Note Co-signed by Attending: Coverage Notice Comment: Last DP export: 04/05/19 11:41 a Patient Name: MAIRA LYN Page [id number] at 1248 All edits/amendments must be made on the electronic document DICTATION DATE: 04/05/191246 GRAVITY PROSPECTING OPERATOR HELPER: JOSE 04/05/191246 RPT#: [id number] DC DATE: STATUS: ADM IN [facility] [address] [place] [address] END OF REPORT
--- NOTE | 2019-04-05 12:56 | MORECARE ---
CASE MANAGEMENT DISCHARGE SUMMARY PATIENT: MAIRA LYN UNIT: [id number] ADM DATE: 04/01/19 AGE: 43 : 77 SEX: M ROOM/BED: D.2101 AUTHOR: TOMÁS,DOC PHYSICIAN: REFERRING PHYSICIAN: JULITA CORTEZ MD DATE OF SERVICE: 04/05/19 Discharge Plan Patient Name: MAIRA LYN Facility: [facility]:[place] : 1975 Planned Disposition: Home Anticipated Discharge Date: 04/05/19 Discharge Date: Expected LOS: 4 Initial Reviewer: [email or web address] Initial Review Date: 04/05/2019 Generated: 04/05/19 1:56 pm Comments DCP- Discharge Planning Updated by [email or web address]: Familia Rodriguez on 04/05/19 11:[address] assist as needed. Familia RodriguezPatient Name: MAIRA LYN Admission Status: ER Accout number: [id number] Admission Date: 04-01-2019 : 1975 Admission Diagnosis:SHORTNESS OF BREATH Attending: JULITA CORTEZ Current LOS: 4 Anticipated DC Date: 04-05-2019 Planned Disposition: Home Primary Insurance: MEDICARE A & B Discharge Planning Comments: CM MET WITH PT IN ROOM TO DISCUSS DISCHARGE PLANNING AND NEEDS. PT REPORTS LIVING AT HOME INDEPENDENTLY WITH HIS MOTHER. PT HAS NO MEDICAL EQUIPMENT AND NO OUTSIDE SERVICES ASSISTING IN THE HOME. CM DISCUSSED AVAILABILITY OF HOME HEALTH, REHAB SERVICES AND MEDICAL EQUIPMENT. PT DENIES DISCHARGE NEEDS, REPORTS HIS MOTHER WILL PICK HER UP FOR DISCHARGE HOME. IMPORTANT MESSAGE FROM MEDICARE PROVIDED AND EXPLAINED. PT DOES NOT HAVE PRIMARY CARE DOCTOR, REPORTING THERE ARE NO GOOD DOCTORS IN [place]. CM PROVIDED [facility] INFORMATION TO PT FOR POSSIBLE PRIMARY CARE. PT ASKED CM TO CALL HIS MOTHER TO COME AND PICK HIM UP TODAY. CM CALLED TIMOTHY LYN, , LEFT DETAILED MESSAGE ASKING FOR HER TO COME AND WEB CONTENT DEVELOPER PT FOR DISCHARGE HOME TODAY. PT REPORTS HE IS LIVING WITH HIS MOTHER AT [address] [place] [address], [place]. [address] BUT WILL SOON BE MOVING TO HIS OWN APARTMENT AT [address] [place] [address] IN [place]. PT DENIES DISCHARGE NEEDS. Convolute Tube Winder: Familia Rodriguez DCPIA - Discharge Planning Initial Assessment Updated by [email or web address]: Familia Rodriguez on 04/05/19 12:43 pm * Is the patient Alert and Oriented? Yes * How many steps to enter\exit or inside your home? NONE * PCP NONE [facility], REFERRED PT STATES THERE ARE NO GOOD DOCTORS IN [place] * Pharmacy [facility] IN [place] * Preadmission Environment Home with Family * ADLs Independent * Equipment None * Other Equipment NO MEDICAL EQUIPMENT PROVIDER PREFERENCE * List name and contact numbers for known caregivers / representatives who currently or will assist patient after discharge: TIMOTHY LYN, MOTHER, * Verbal permission to speak to the caregivers and representatives has been obtained from the patient. Yes * Community resources currently utilized None * Please name any agencies selected above. NONE * Additional services required to return to the preadmission environment? No * Can the patient safely return to the preadmission environment? Yes * Has this patient been hospitalized within the prior 30 days at any hospital? No Coverage Notice Reviewer: [id number] - Familia Rodriguez Notice Issued Date-Time: 04/05/2019 11:25 Notice Type: IM Discharge Notice Notice Delivered To: Patient Relationship to Patient: General Production Worker Name: Delivery Method: HAND - Hand Delivered Belle Days: Prior Verbal Notification: Recipient Understood Notice: Yes Recipient Signature: Yes Med Rec Note Co-signed by Attending: Coverage Notice Comment: Last DP export: 04/05/19 11:48 a Patient Name: MAIRA LYN Page [phone] at 1256 All edits/amendments must be made on the electronic document DICTATION DATE: 04/05/19 1256 ORTHODONTIC TECHNICIAN: JOSE 04/05/19 1256 RPT#: [id number] DC DATE: STATUS: ADM IN [facility] [address] [facility] [place] [address] END OF REPORT
--- NOTE | 2019-04-05 13:20 | NUR ---
THE PATIENT WAS SITTING IN A CHAIR AND WATCHING TELEVISION WHEN STAFF ENTERED HIS ROOM. THE PATIENT WAS EDUCATED ON THE USE OF A CALL LIGHT AND DEMONSTRATES UNDERSTANDING VIA TEACHBACK METHOD. THE PATIENT APPEARS COMFORTABLE WITH NO QUESTIONS OR COCNERNS AT THIS TIME.
== END 2019-04-05 14:10 | disposition home or self-care (01) | DRG 682 ==
LOC: D.ER 19:26 → D.M2 22:43
PROVIDERS: Family Medicine; ADMIT Internal Medicine Nephrology; ATTEND Internal Medicine Nephrology
DX: N17.9 Acute kidney failure, unspecified (principal); I50.43 Acute on chronic combined systolic (congestive) and diastolic (congestive) heart failure; F17.213 Nicotine dependence, cigarettes, with withdrawal; I24.0 Acute coronary thrombosis not resulting in myocardial infarction; I11.0 Hypertensive heart disease with heart failure; I50.84 End stage heart failure; K76.1 Chronic passive congestion of liver; E83.42 Hypomagnesemia; D64.9 Anemia, unspecified; E78.5 Hyperlipidemia, unspecified; E11.9 Type 2 diabetes mellitus without complications; F14.90 Cocaine use, unspecified, uncomplicated; Z91.19 Patient's noncompliance with other medical treatment and regimen; F20.9 Schizophrenia, unspecified

== ENCOUNTER 2019-04-06 02:42 | Inpatient (IN) | payer MEDICARE ==
[~2019-04-06] VITALS: Ht 170.2 cm; Wt 93.2 kg
[~2019-04-06 02:42] MED LIST changes: +COREG6.25 MG PO; +K-TAB10 MEQ PO; +LASIX40 MG PO; +XARELTO20 MG PO
[2019-04-06 03:00] LABS: BASOPHILS 0.6 % (0-2); EOSINOPHILS 1.3 % (0-7); HEMATOCRIT 33.5 % (42.0-54.0); HEMOGLOBIN 11.6 g/dL (13.5-17.5); IMMATURE GRANULOCYTES 0.4 % (0-5); LYMPHOCYTES 28.4 % (15-50); MCH 27.8 pg (26.0-34.0); MCHC 34.6 g/dL (31.0-37.0); MCV 80.1 fL (80.0-100.0); MEAN PLATELET VOLUME 11.1 fL (7.4-10.4); MONOCYTES 5.7 % (2-11); NEUTROPHILS 63.6 % (40-80); PLATELET COUNT 197 10x3/uL (130-400); RBC 4.18 10x6/uL (4.20-6.10); RDW 16.5 % (11.5-14.5); WBC 8.2 10x3/uL (4.8-10.8)
[2019-04-06 03:10] LABS: APTT 36.7 SECONDS (22.8-39.4); INR 1.87 (0.85-1.17); PROTIME 20.9 SECONDS (11.6-15.0)
[2019-04-06 03:16] LABS: ALBUMIN 2.8 g/dL (3.4-5.0); ALKALINE PHOSPHATASE 169 U/L (46-116); ALT (SGPT) 113 U/L (10-68); BILIRUBIN - TOTAL 0.78 mg/dL (0.2-1.3); CALC OSMOLALITY 277 mosm/kg (275-300); CALCIUM 8.8 mg/dL (8.5-10.1); CARBON DIOXIDE 24.3 mmol/L (21.0-32.0); CHLORIDE - SERUM 100 mmol/L (98-107); GLUCOSE 104 mg/dL (74-106); POTASSIUM - SERUM 4.1 mmol/L (3.5-5.1); PROTEIN - SERUM 6.6 g/dL (6.4-8.2); SODIUM 134 mmol/L (136-145); UREA NITROGEN 40 mg/dL (7-18); eGFR NON AFRICAN AMERICAN 39 mL/min (90-120)
[2019-04-06 03:33] LABS: CKMB 9.7 U/L (0.0-3.6); CREATINE KINASE 676 UL (21-232); PRO BNP 14288 pg/mL (0-125)
[2019-04-06 03:35] LABS: TROPONIN-I 0.203 ng/mL (0.000-0.060)
[2019-04-06 08:30] VITALS: BP 131/72; BMI 32.9
[2019-04-06 15:11] VITALS: Ht 170.2 cm; Wt 93.2 kg
[2019-04-06 15:20] VITALS: BP 138/82
[2019-04-06 20:35] VITALS: BP 116/94
[2019-04-06 23:34] VITALS: BP 124/93
[2019-04-07 03:31] VITALS: BP 130/95
[2019-04-07 05:53] LABS: BASOPHILS 0.6 % (0-2); EOSINOPHILS 2.7 % (0-7); HEMATOCRIT 34.1 % (42.0-54.0); HEMOGLOBIN 11.4 g/dL (13.5-17.5); IMMATURE GRANULOCYTES 0.1 % (0-5); LYMPHOCYTES 31.6 % (15-50); MCH 27.2 pg (26.0-34.0); MCHC 33.4 g/dL (31.0-37.0); MCV 81.4 fL (80.0-100.0); MEAN PLATELET VOLUME 11.7 fL (7.4-10.4); MONOCYTES 7.4 % (2-11); NEUTROPHILS 57.6 % (40-80); PLATELET COUNT 199 10x3/uL (130-400); RBC 4.19 10x6/uL (4.20-6.10); RDW 17.1 % (11.5-14.5); WBC 7.9 10x3/uL (4.8-10.8)
[2019-04-07 06:03] LABS: ANION GAP 13.5 mmol/L (8-16); CARBON DIOXIDE 26.6 mmol/L (21.0-32.0); CREATININE - SERUM 1.9 mg/dL (0.6-1.3); POTASSIUM - SERUM 4.1 mmol/L (3.5-5.1)
[2019-04-07 08:33] VITALS: BP 117/82
[2019-04-07 12:06] VITALS: BP 126/74
[2019-04-07 15:00] VITALS: BP 129/95
[2019-04-07 15:41] LABS: APPEARANCE CLEAR (CLEAR); BILIRUBIN NEGATIVE (NEGATIVE); COLOR STRAW (YELLOW); GLUCOSE NEGATIVE (NEGATIVE); KETONE NEGATIVE (NEGATIVE); NITRITE NEGATIVE (NEGATIVE); PROTEIN NEGATIVE (NEGATIVE); SPECIFIC GRAVITY 1.005 (1.005-1.020)
[2019-04-07 15:57] LABS: UDS - AMPHET NEGATIVE QUAL (NEGATIVE); UDS - BARB NEGATIVE QUAL (NEGATIVE); UDS - BENZO NEGATIVE QUAL (NEGATIVE); UDS - COCAINE NEGATIVE QUAL (NEGATIVE); UDS - OPIATE NEGATIVE QUAL (NEGATIVE); UDS - PCP NEGATIVE QUAL (NEGATIVE); UDS - THC NEGATIVE QUAL (NEGATIVE)
[2019-04-07 20:00] VITALS: BP 116/90
[2019-04-08] VITALS: BP 117/90
[2019-04-08 06:17] LABS: BASOPHILS 0.3 % (0-2); EOSINOPHILS 4.1 % (0-7); HEMATOCRIT 33.5 % (42.0-54.0); HEMOGLOBIN 11.3 g/dL (13.5-17.5); IMMATURE GRANULOCYTES 0.3 % (0-5); LYMPHOCYTES 28.9 % (15-50); MCH 27.3 pg (26.0-34.0); MCHC 33.7 g/dL (31.0-37.0); MCV 80.9 fL (80.0-100.0); MEAN PLATELET VOLUME 11.3 fL (7.4-10.4); MONOCYTES 6.9 % (2-11); NEUTROPHILS 59.5 % (40-80); PLATELET COUNT 201 10x3/uL (130-400); RBC 4.14 10x6/uL (4.20-6.10); RDW 16.8 % (11.5-14.5)
[2019-04-08 06:38] LABS: ANION GAP 12.7 mmol/L (8-16); CALCIUM 8.4 mg/dL (8.5-10.1); CARBON DIOXIDE 27.5 mmol/L (21.0-32.0); CREATININE - SERUM 1.8 mg/dL (0.6-1.3); POTASSIUM - SERUM 4.2 mmol/L (3.5-5.1)
[2019-04-08 08:25] VITALS: BP 124/82
[2019-04-08 12:22] VITALS: BP 115/94
[2019-04-08 22:54] VITALS: BP 147/81
[2019-04-09 04:00] VITALS: BP 131/90
[2019-04-09 06:44] LABS: ANION GAP 12.8 mmol/L (8-16); CALCIUM 8.4 mg/dL (8.5-10.1); CREATININE - SERUM 1.6 mg/dL (0.6-1.3); POTASSIUM - SERUM 4.8 mmol/L (3.5-5.1)
[2019-04-09 06:49] LABS: BASOPHILS 0.5 % (0-2); HEMATOCRIT 34.2 % (42.0-54.0); HEMOGLOBIN 11.5 g/dL (13.5-17.5); IMMATURE GRANULOCYTES 0.2 % (0-5); LYMPHOCYTES 29.4 % (15-50); MCH 27.3 pg (26.0-34.0); MCHC 33.6 g/dL (31.0-37.0); MCV 81.2 fL (80.0-100.0); MEAN PLATELET VOLUME 11.1 fL (7.4-10.4); MONOCYTES 5.8 % (2-11); NEUTROPHILS 61.1 % (40-80); PLATELET COUNT 198 10x3/uL (130-400); RBC 4.21 10x6/uL (4.20-6.10); RDW 16.8 % (11.5-14.5); WBC 8.2 10x3/uL (4.8-10.8)
[2019-04-09 08:02] VITALS: BP 132/89
--- NOTE | 2019-04-10 08:09 | MORECARE ---
CASE MANAGEMENT DISCHARGE SUMMARY PATIENT: MAIRA LYN UNIT: [id number] ADM DATE: 04/06/19 AGE: 43 : 77 SEX: M ROOM/BED: D.2129 AUTHOR: CARIE ENGLAND PHYSICIAN: REFERRING PHYSICIAN: JULITA CORTEZ MD DATE OF SERVICE: 04/10/19 Discharge Plan Patient Name: MAIRA LYN [facility] [facility] 1975 Planned Disposition: Left Against Medical Advice Anticipated Discharge Date: 04/09/19 Discharge Date: 04/09/2019 Expected LOS: 3 Initial Reviewer: [email or web address] Initial Review Date: 04/10/2019 Generated: 04/10/19 9:08 am DCP- Discharge Planning Updated by [email or web address]: Jacki Dong on 04/06/19 5:[address] Patient Name: MAIRA LYN Admission Status: ER Accout number: [id number] Admission Date: 04-06-2019 : 1975 Admission Diagnosis: Attending: JULITA CORTEZ Current LOS: 1 Anticipated DC Date: Planned Disposition: Primary Insurance: MEDICARE A & B Discharge Planning Comments: CM SPOKE TO PATIENT MOTHER, JENNIFER, AT [phone]. JENNIFER STATED HE WAS ON HOSPICE AT [facility] BUT REVOKED HIS HOSPICE. SHE WANTS TO KNOW IF HE CAN HAVE A HOSPITAL BED AT HIS HOME. I STATED I WOULD CHECK AND CALL HER BACK TOMORROW IT IS THE END OF THE DAY. CM WILL FOLLOW AND ASSIST. Boilermaker Helper: Jacki Dong Patient Name: MAIRA LYN Page [phone] at 0809 All edits/amendments must be made on the electronic document DICTATION DATE: 04/10/19807 NETWORK ENGINEERING ADVISOR: JOSE 04/10/19807 RPT#: [id number] DC DATE:04/09/19 STATUS: DIS IN [facility] [address] [place] [address] END OF REPORT
== END 2019-04-09 18:01 | disposition home or self-care (01) | DRG 291 ==
LOC: D.ER 02:42 → D.MS 05:15 → OBSVTIME 05:15 → D.M2 10:45 → D.SDCHOLD 04-09 13:28 → D.M2 04-09 18:01
PROVIDERS: Family Medicine; ADMIT Internal Medicine Nephrology; ATTEND Internal Medicine Nephrology
DX: I13.0 Hypertensive heart and chronic kidney disease with heart failure and stage 1 through stage 4 chronic kidney disease, or unspecified chronic kidney disease (principal); I50.43 Acute on chronic combined systolic (congestive) and diastolic (congestive) heart failure; I24.0 Acute coronary thrombosis not resulting in myocardial infarction; N17.9 Acute kidney failure, unspecified; F17.213 Nicotine dependence, cigarettes, with withdrawal; I11.0 Hypertensive heart disease with heart failure; I42.8 Other cardiomyopathies; F20.9 Schizophrenia, unspecified; F14.959 Cocaine use, unspecified with cocaine-induced psychotic disorder, unspecified; K76.1 Chronic passive congestion of liver; N18.9 Chronic kidney disease, unspecified; Z91.128 Patient's intentional underdosing of medication regimen for other reason; E11.22 Type 2 diabetes mellitus with diabetic chronic kidney disease; E78.5 Hyperlipidemia, unspecified

== ENCOUNTER 2019-04-13 06:44 | Inpatient (IN) | payer MEDICARE ==
[~2019-04-13] VITALS: Ht 170.2 cm; Wt 95.7 kg
--- NOTE | 2019-04-13 07:04 | NUR ---
URINE SENT TO LAB
[2019-04-13 07:15] LABS: APPEARANCE CLEAR (CLEAR); BILIRUBIN NEGATIVE (NEGATIVE); COLOR STRAW (YELLOW); GLUCOSE NEGATIVE (NEGATIVE); KETONE NEGATIVE (NEGATIVE); NITRITE NEGATIVE (NEGATIVE); PROTEIN NEGATIVE (NEGATIVE); SPECIFIC GRAVITY 1.005 (1.005-1.020); UROBILINOGEN NORMAL (NORMAL)
[2019-04-13 07:21] LABS: UDS - AMPHET NEGATIVE QUAL (NEGATIVE); UDS - BARB NEGATIVE QUAL (NEGATIVE); UDS - BENZO NEGATIVE QUAL (NEGATIVE); UDS - COCAINE POSITIVE QUAL (NEGATIVE); UDS - OPIATE NEGATIVE QUAL (NEGATIVE); UDS - PCP NEGATIVE QUAL (NEGATIVE); UDS - THC NEGATIVE QUAL (NEGATIVE)
[2019-04-13 07:24] LABS: BASOPHILS 0.5 % (0-2); EOSINOPHILS 0.7 % (0-7); HEMATOCRIT 35.4 % (42.0-54.0); HEMOGLOBIN 11.9 g/dL (13.5-17.5); IMMATURE GRANULOCYTES 0.2 % (0-5); LYMPHOCYTES 29.4 % (15-50); MCH 26.8 pg (26.0-34.0); MCHC 33.6 g/dL (31.0-37.0); MCV 79.7 fL (80.0-100.0); MEAN PLATELET VOLUME 10.8 fL (7.4-10.4); MONOCYTES 7.3 % (2-11); NEUTROPHILS 61.9 % (40-80); PLATELET COUNT 176 10x3/uL (130-400); RBC 4.44 10x6/uL (4.20-6.10); RDW 16.5 % (11.5-14.5); WBC 8.6 10x3/uL (4.8-10.8)
[2019-04-13 07:38] VITALS: BP 127/86
[2019-04-13 07:47] LABS: ANION GAP 15.8 mmol/L (8-16); BILIRUBIN - TOTAL 1.68 mg/dL (0.2-1.3); CARBON DIOXIDE 23.5 mmol/L (21.0-32.0); CREATININE - SERUM 1.9 mg/dL (0.6-1.3); POTASSIUM - SERUM 4.3 mmol/L (3.5-5.1); PROTEIN - SERUM 7.3 g/dL (6.4-8.2)
[2019-04-13 07:55] LABS: MAGNESIUM - SERUM 1.9 mg/dL (1.8-2.4); THYROID STIMULATING HORMONE 2.18 uIU/mL (0.36-3.74)
[2019-04-13 07:57] LABS: TROPONIN-I 0.225 ng/mL (0.000-0.060)
--- NOTE | 2019-04-13 09:20 | NUR ---
RECIEVED FROM ER. AWAKE AND ALERT. TELEMERTY SHOWS SR 84. SL TO RIGHT AC. V/S STABLE. AWAITING DR FOR ORDERS
[2019-04-13 09:35] VITALS: BP 133/101
[2019-04-13 10:56] VITALS: BMI 31.3
[2019-04-13 13:13] LABS: APTT 31.9 SECONDS (22.8-39.4); INR 1.52 (0.85-1.17); PROTIME 17.7 SECONDS (11.6-15.0)
[2019-04-13 13:14] VITALS: BP 133/101; Ht 170.2 cm; Wt 95.7 kg
[2019-04-13 13:21] LABS: D-DIMER-QUANTITATIVE 11.67 ug/mLFEU (0.20-0.54)
--- NOTE | 2019-04-13 13:24 | NUR ---
ASSESSMENT COMPLETE DENIES ANY NEEDS OR DISCOMFORT AT THIS TIME NAD NOTED
[2019-04-13 13:33] LABS: CKMB 14.2 U/L (0.0-3.6)
[2019-04-13 13:37] VITALS: BP 107/77
[2019-04-13 13:38] LABS: CREATINE KINASE 936 UL (21-232); TROPONIN-I 0.224 ng/mL (0.000-0.060)
--- NOTE | 2019-04-13 18:15 | NUR ---
SITTING UP IN BED. DENIES ANY NEEDS. TELEMERTY SHOWS SR. WILL MONITOR
[2019-04-13 18:51] LABS: CKMB 13.4 U/L (0.0-3.6)
[2019-04-13 18:56] LABS: CREATINE KINASE 852 UL (21-232)
[2019-04-13 19:09] LABS: TROPONIN-I 0.214 ng/mL (0.000-0.060)
[2019-04-13 21:35] VITALS: BP 111/68
[2019-04-14] VITALS: BP 107/69
[2019-04-14 01:39] LABS: CKMB 8.9 U/L (0.0-3.6); CREATINE KINASE 674 UL (21-232)
[2019-04-14 01:43] LABS: TROPONIN-I 0.199 ng/mL (0.000-0.060)
[2019-04-14 04:00] VITALS: BP 112/78
--- NOTE | 2019-04-14 06:00 | NUR ---
PT HAS BEEN AWAKE ALMOST ENTIRE NIGHT. 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 PT HAS REPORTED NO PAIN OR DISCOMFORT. HE HAS EATEN COPIOUS AMOUNTS OF JUICES/AUGUSTO/SANDWICHES AND JELLOS. STAFF FINALLY HAD TO RESTRICT PATIENT FROM ANYMORE SNACKS FOR THE NIGHT.
[2019-04-14 06:31] LABS: BASOPHILS 0.3 % (0-2); EOSINOPHILS 2.4 % (0-7); HEMATOCRIT 31.8 % (42.0-54.0); HEMOGLOBIN 10.8 g/dL (13.5-17.5); IMMATURE GRANULOCYTES 0.1 % (0-5); LYMPHOCYTES 24.4 % (15-50); MCH 26.7 pg (26.0-34.0); MCV 78.7 fL (80.0-100.0); MEAN PLATELET VOLUME 11.7 fL (7.4-10.4); MONOCYTES 7.9 % (2-11); NEUTROPHILS 64.9 % (40-80); PLATELET COUNT 180 10x3/uL (130-400); RBC 4.04 10x6/uL (4.20-6.10); RDW 16.5 % (11.5-14.5); WBC 7.6 10x3/uL (4.8-10.8)
[2019-04-14 07:13] LABS: ALBUMIN 2.4 g/dL (3.4-5.0); BILIRUBIN - TOTAL 0.93 mg/dL (0.2-1.3); CALCIUM 8.2 mg/dL (8.5-10.1); CARBON DIOXIDE 24.2 mmol/L (21.0-32.0); CREATININE - SERUM 1.8 mg/dL (0.6-1.3); MAGNESIUM - SERUM 1.8 mg/dL (1.8-2.4); PROTEIN - SERUM 6.1 g/dL (6.4-8.2)
[2019-04-14 07:14] LABS: ANION GAP 14.4 mmol/L (8-16); POTASSIUM - SERUM 3.6 mmol/L (3.5-5.1)
--- NOTE | 2019-04-14 07:38 | NUR ---
ALERT AND ORIENTED. DENIES ANY NEEDS. TELEMERTY SHOWS SR 92. RIGHT AC SL. SIDE RALE UP WITH CALL LIGHT IN REACH
[2019-04-14 09:05] VITALS: BP 115/88
--- NOTE | 2019-04-14 11:39 | NUR ---
I have reviewed this patient and I concur with the Shift Assessment completed by the Licensed Practical Nurse today this shift.
[2019-04-14 12:31] VITALS: BP 108/64
--- NOTE | 2019-04-14 12:57 | NUR ---
NO NEEDS VOICED. PT ARGUING ABOUT NOT WANTING TO GO TO BATHROOM, WANTS TO USE A URINAL AT BEDSIDE EVEN THOUGHT HE IS ABLE TO WALK ALL OVER THE HOSPITAL. WILL MONITOR
--- NOTE | 2019-04-14 13:36 | NUR ---
WENT TO ROOM MAKING ROUNDS. PT WAS NOT IN ROOM AND MONITOR WAS ON HIS BED. PT HAD BEEN TOLD TO STAY ON THIS FLOOR .
--- NOTE | 2019-04-14 16:16 | NUR ---
PT STILL HAS NOT RETURN. MONITOR WAS LEFT BUT UNSURE ABOUT IV. SECURITY WAS CALLED AND NO TRACE OF PT ON HOSPITAL PREMISES. ATTEMPTED TO CALL HIS MOTHER - NO ANSWER BUT MESSAGE LEFT FOR A RETURN PHONE CALL FOR IV DC. [facility] SARAVIA APN ON UNIT AND NOTIFIED OF SITUATION.
--- NOTE | 2019-04-15 08:35 | MORECARE ---
CASE MANAGEMENT DISCHARGE SUMMARY PATIENT: MAIRA LYN UNIT: [id number] ADM DATE: 04/13/19 AGE: 43 : 77 SEX: M ROOM/BED: D.2120 AUTHOR: CARIE ENGLAND PHYSICIAN: REFERRING PHYSICIAN: JULITA CORTEZ MD DATE OF SERVICE: 04/15/19 Discharge Plan Patient Name: MAIRA LYN [facility] [facility] 1975 Planned Disposition: Left Against Medical Advice Anticipated Discharge Date: 04/14/19 Discharge Date: 04/14/2019 Expected LOS: 1 Initial Reviewer: [email or web address] Initial Review Date: 04/15/2019 Generated: 04/15/19 9:35 am Patient Name: MAIRA LYN Page [phone] at 0835 All edits/amendments must be made on the electronic document DICTATION DATE: 04/15/19 0835 EXEC. CREATIVE DIRECTOR: JOSE 04/15/19 0835 RPT#: [id number] DC DATE:04/14/19 STATUS: DIS IN [facility] [address] [place] [address] END OF REPORT
--- NOTE | 2019-04-17 14:31 | CN ---
PATIENT NAME:MAIRA LYN MEDICAL RECORD: [id number] : [birth year] LOCATION:. D.2120 ADMIT DATE: 04/13/19 ACCOUNT: [id number] CONSULTING PHYSICIAN: ALOK COCHRAN MD REFERRING PHYSICIAN: JULITA CORTEZ MD DATE OF CONSULTATION: 04/13/2019 DIAGNOSES: 1. Shortness of breath, dyspnea on exertion. 2. Congestive heart failure, chronic systolic dysfunction. 3. Cardiomyopathy. 4. Chest pain. 5. Cocaine use. HISTORY OF PRESENT ILLNESS: Mr. Lyn presents with shortness of breath and chest pain. He did use cocaine yesterday. 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 His ejection fraction in the 15% range. He was noncompliant and did not fill any of his medications last time he was discharged. He has received 1 dose of IV Lasix. Now breathing is back to baseline. He wants to leave. Last time he left AMA, but his prescriptions were sent to [facility]. He did not fill them. PHYSICAL EXAMINATION: CONSTITUTIONAL/GENERAL APPEARANCE: Well nourished, well developed, appears stated age. EYES: Lids and conjunctivae noninjected. No discharge. No pallor. ENT: Lips within normal limit. No cyanosis. No pallor. NECK: Carotid arteries, bilateral normal upstroke. No bruits. No thrills. No jugular venous pressure or distention. CERVICAL LYMPH NODES: Nontender. Nonenlarged. THYROID: Not enlarged. No nodules. CARDIOVASCULAR: Precordial exam, nondisplaced. No heaves or pericardial thrills. Rate and rhythm, regular. Heart sounds, normal S1, normal S2. No S3, no gallop, no rub. Systolic murmur, not heard. Diastolic murmur, not heard. RESPIRATORY: Respiratory effort, unlabored. Normal curvature. No thoracic deformity. No chest wall tenderness. Percussion, resonant. Auscultation, clear. No wheezes, no rales, no rhonchi. ABDOMEN: Soft, nondistended, nontender. No abdominal pain, no vomiting and normal appetite. MUSCULOSKELETAL: No joint tenderness, normal gait, normal tone. SKIN: Warm and dry. OVERALL IMPRESSION: Congestive heart failure from substance abuse, gross noncompliance. This time, his breathing is back to normal after diuresis. We will once again give him hand written scripts for his medications, possibly he will fill these. No other cardiac workup or treatment is necessary. TRANSINT:[id number] Voice Confirmation ID: [id number] DOCUMENT ID: [id number] CONSULT REPORT [id number] MAIRA LYN, ALOK BOURGEOIS at 1431 CC: [id number] DICTATION DATE: 04/13/19 1051 PERIODICALS CLERK: 04/13/19 1118 DIS IN 04/14/19 [place] [address]
== END 2019-04-14 16:21 | disposition left against medical advice (07) | DRG 292 ==
LOC: D.ER 06:44 → D.M2 07:41
PROVIDERS: Family Medicine; ADMIT Internal Medicine Nephrology; ATTEND Internal Medicine Nephrology
DX: I11.0 Hypertensive heart disease with heart failure (principal); F17.213 Nicotine dependence, cigarettes, with withdrawal; N17.9 Acute kidney failure, unspecified; I50.43 Acute on chronic combined systolic (congestive) and diastolic (congestive) heart failure; D50.9 Iron deficiency anemia, unspecified; F14.90 Cocaine use, unspecified, uncomplicated; K76.1 Chronic passive congestion of liver; E11.9 Type 2 diabetes mellitus without complications; E78.5 Hyperlipidemia, unspecified; I10 Essential (primary) hypertension; I50.84 End stage heart failure; R79.89 Other specified abnormal findings of blood chemistry; I42.9 Cardiomyopathy, unspecified

== ENCOUNTER 2019-04-15 15:35 | Emergency (ER) | payer MEDICARE ==
[~2019-04-15] VITALS: Ht 170.2 cm; Wt 93.0 kg
[2019-04-15 15:42] VITALS: Ht 170.2 cm; Wt 93.0 kg
[2019-04-15 16:36] LABS: BASOPHILS 0.5 % (0-2); EOSINOPHILS 1.9 % (0-7); HEMATOCRIT 32.8 % (42.0-54.0); IMMATURE GRANULOCYTES 0.3 % (0-5); LYMPHOCYTES 29.3 % (15-50); MCH 26.7 pg (26.0-34.0); MCHC 33.5 g/dL (31.0-37.0); MCV 79.6 fL (80.0-100.0); MEAN PLATELET VOLUME 10.5 fL (7.4-10.4); PLATELET COUNT 200 10x3/uL (130-400); RBC 4.12 10x6/uL (4.20-6.10); RDW 16.7 % (11.5-14.5); WBC 7.6 10x3/uL (4.8-10.8)
[2019-04-15 16:46] LABS: APTT 28.8 SECONDS (22.8-39.4); INR 1.25 (0.85-1.17); PROTIME 15.2 SECONDS (11.6-15.0)
[2019-04-15 16:57] LABS: ALBUMIN 2.6 g/dL (3.4-5.0); ALKALINE PHOSPHATASE 151 U/L (46-116); ALT (SGPT) 89 U/L (10-68); BILIRUBIN - TOTAL 0.86 mg/dL (0.2-1.3); CALC OSMOLALITY 280 mosm/kg (275-300); CALCIUM 8.3 mg/dL (8.5-10.1); CARBON DIOXIDE 26.1 mmol/L (21.0-32.0); CHLORIDE - SERUM 105 mmol/L (98-107); CREATININE - SERUM 1.6 mg/dL (0.6-1.3); GLUCOSE 79 mg/dL (74-106); POTASSIUM - SERUM 3.7 mmol/L (3.5-5.1); PROTEIN - SERUM 6.7 g/dL (6.4-8.2); SODIUM 139 mmol/L (136-145); UREA NITROGEN 25 mg/dL (7-18); eGFR NON AFRICAN AMERICAN 51 mL/min (90-120)
[2019-04-15 17:12] LABS: CKMB 15.6 U/L (0.0-3.6); MAGNESIUM - SERUM 1.8 mg/dL (1.8-2.4)
[2019-04-15 17:13] LABS: CREATINE KINASE 1399 UL (21-232)
[2019-04-15 17:15] LABS: TROPONIN-I 0.227 ng/mL (0.000-0.060)
[2019-04-15 19:02] VITALS: BP 143/99
[2019-04-16] MEDS ORDERED: Aldactone PO (11:27)
[2019-04-16] MEDS ORDERED: COREG6.25 MG PO (11:27)
[2019-04-16] MEDS ORDERED: ALDACTONE25 MG PO (11:28)
[2019-04-16] MEDS ORDERED: XARELTO20 MG PO (11:29)
[2019-04-16] MEDS ORDERED: PROTONIX40 MG PO (11:29)
== END 2019-04-15 19:05 | disposition home or self-care (01) ==
LOC: D.ER 15:35
PROVIDERS: Family Medicine
DX: I13.0 Hypertensive heart and chronic kidney disease with heart failure and stage 1 through stage 4 chronic kidney disease, or unspecified chronic kidney disease (principal); N18.9 Chronic kidney disease, unspecified; I50.9 Heart failure, unspecified; E11.22 Type 2 diabetes mellitus with diabetic chronic kidney disease; F14.90 Cocaine use, unspecified, uncomplicated; F17.210 Nicotine dependence, cigarettes, uncomplicated

== ENCOUNTER 2019-04-16 03:20 | Observation (INO) | payer MEDICARE ==
[~2019-04-16] VITALS: Ht 170.2 cm; Wt 93.2 kg
[2019-04-16 03:45] LABS: BASOPHILS 0.4 % (0-2); EOSINOPHILS 1.7 % (0-7); HEMATOCRIT 33.6 % (42.0-54.0); HEMOGLOBIN 11.6 g/dL (13.5-17.5); IMMATURE GRANULOCYTES 0.1 % (0-5); LYMPHOCYTES 30.1 % (15-50); MCH 27.5 pg (26.0-34.0); MCHC 34.5 g/dL (31.0-37.0); MCV 79.6 fL (80.0-100.0); MEAN PLATELET VOLUME 10.4 fL (7.4-10.4); MONOCYTES 9.2 % (2-11); NEUTROPHILS 58.5 % (40-80); PLATELET COUNT 206 10x3/uL (130-400); RBC 4.22 10x6/uL (4.20-6.10); RDW 16.6 % (11.5-14.5)
[2019-04-16 03:57] LABS: INR 1.27 (0.85-1.17); PROTIME 15.4 SECONDS (11.6-15.0)
[2019-04-16 03:59] LABS: APTT 21.7 SECONDS (22.8-39.4)
[2019-04-16 04:01] LABS: ALBUMIN 2.8 g/dL (3.4-5.0); ALKALINE PHOSPHATASE 157 U/L (46-116); ALT (SGPT) 96 U/L (10-68); BILIRUBIN - TOTAL 0.97 mg/dL (0.2-1.3); CALC OSMOLALITY 270 mosm/kg (275-300); CALCIUM 8.2 mg/dL (8.5-10.1); CARBON DIOXIDE 26.4 mmol/L (21.0-32.0); CHLORIDE - SERUM 102 mmol/L (98-107); CREATININE - SERUM 1.7 mg/dL (0.6-1.3); GLUCOSE 88 mg/dL (74-106); POTASSIUM - SERUM 3.9 mmol/L (3.5-5.1); SODIUM 133 mmol/L (136-145); UREA NITROGEN 28 mg/dL (7-18); eGFR NON AFRICAN AMERICAN 47 mL/min (90-120)
[2019-04-16 04:03] VITALS: BP 118/89
[2019-04-16 04:17] LABS: CKMB 15.3 U/L (0.0-3.6); MAGNESIUM - SERUM 1.7 mg/dL (1.8-2.4); PRO BNP 17008 pg/mL (0-125)
[2019-04-16 04:22] LABS: CREATINE KINASE 1577 UL (21-232)
--- NOTE | 2019-04-16 05:30 | NUR ---
PT ARRIVES TO ROOM FROM ER VIA WC AND IMEDIATELY BEGINS GIVING ME ORDERS TO BRING HIM ITEMS BED IS LOW AND LOCKED SR X2 AND CALL LIGHT IS PLACED IN REACH. PT REFUSES FULL EXAM FROM ME BUIT I DID TAKE NOTE OF EDEMA IN FEET
--- NOTE | 2019-04-16 05:56 | NUR ---
NEW ORDERS TAKEN AND NOTED NO TELEMETRY AVAILABLE
[2019-04-16 06:31] VITALS: BP 136/99; BMI 32.2
[2019-04-16 06:31] LABS: CKMB 15.7 U/L (0.0-3.6)
[2019-04-16 06:37] LABS: CREATINE KINASE 1546 UL (21-232)
--- NOTE | 2019-04-16 07:34 | NUR ---
REPORT RECEIVED. WILL CONTINUE WITH POC. PT CURRENTLY LYING SEMI FOWLERS. CALL LIGHT W/I REACH. RR EVEN AND UNLABORED ON RA. L.AC PIV IS SALINE LOCKED. PT IS RESTING AT THIS TIME. NO S/S OF DISTRESS NOTED. WILL CTM.
[2019-04-16 08:25] VITALS: BP 150/98
[2019-04-16 09:42] VITALS: Ht 170.2 cm; Wt 93.2 kg
[2019-04-16 11:02] LABS: UDS - AMPHET NEGATIVE QUAL (NEGATIVE); UDS - BARB NEGATIVE QUAL (NEGATIVE); UDS - BENZO NEGATIVE QUAL (NEGATIVE); UDS - COCAINE POSITIVE QUAL (NEGATIVE); UDS - OPIATE NEGATIVE QUAL (NEGATIVE); UDS - PCP NEGATIVE QUAL (NEGATIVE); UDS - THC NEGATIVE QUAL (NEGATIVE)
[2019-04-16 11:23] LABS: CKMB 11.5 U/L (0.0-3.6)
[2019-04-16 11:27] LABS: CREATINE KINASE 1252 UL (21-232); TROPONIN-I 0.219 ng/mL (0.000-0.060)
[2019-04-16] MEDS ORDERED: Aldactone PO (11:27)
[2019-04-16] MEDS ORDERED: COREG6.25 MG PO (11:27)
[2019-04-16] MEDS ORDERED: ALDACTONE25 MG PO (11:28)
[2019-04-16] MEDS ORDERED: XARELTO20 MG PO (11:29)
[2019-04-16] MEDS ORDERED: PROTONIX40 MG PO (11:29)
--- NOTE | 2019-04-16 13:48 | NUR ---
PT DISCHARGED HOME WITH FAMILY VIA WHEELCHAIR. PIV REMOVED WITH CATHETER TIP FULLY INTACT. PT SIGNED PROPER DISCHARGE INSTRUCTIONS AND REMOVED ALL VALUABLES FROM THE ROOM.
== END 2019-04-16 13:49 | disposition home or self-care (01) ==
LOC: D.ER 03:20 → D.M2 04:43 → OBSVTIME 04:43 → D.M2 13:49
PROVIDERS: Family Medicine; ADMIT Internal Medicine Nephrology; ATTEND Internal Medicine Nephrology
DX: I11.0 Hypertensive heart disease with heart failure (principal); I50.43 Acute on chronic combined systolic (congestive) and diastolic (congestive) heart failure; I50.84 End stage heart failure; R79.89 Other specified abnormal findings of blood chemistry; N17.9 Acute kidney failure, unspecified; E83.42 Hypomagnesemia; E87.1 Hypo-osmolality and hyponatremia; D64.9 Anemia, unspecified; E78.5 Hyperlipidemia, unspecified; E11.9 Type 2 diabetes mellitus without complications; F20.9 Schizophrenia, unspecified; F14.90 Cocaine use, unspecified, uncomplicated; F17.213 Nicotine dependence, cigarettes, with withdrawal; Z91.14 Patient's other noncompliance with medication regimen

== ENCOUNTER 2019-04-16 20:25 | Emergency (ER) | payer MEDICARE ==
[~2019-04-16] VITALS: Ht 170.2 cm; Wt 93.2 kg
[2019-04-16 20:25] VITALS: Ht 170.2 cm; Wt 93.2 kg
[~2019-04-16 20:25] MED LIST changes: +ALDACTONE25 MG PO; +Aldactone PO; +PROTONIX40 MG PO
[2019-04-16 21:06] LABS: BASOPHILS 0.5 % (0-2); EOSINOPHILS 2.1 % (0-7); HEMATOCRIT 35.5 % (42.0-54.0); HEMOGLOBIN 12.1 g/dL (13.5-17.5); IMMATURE GRANULOCYTES 0.3 % (0-5); LYMPHOCYTES 29.9 % (15-50); MCH 27.1 pg (26.0-34.0); MCHC 34.1 g/dL (31.0-37.0); MCV 79.6 fL (80.0-100.0); MEAN PLATELET VOLUME 10.6 fL (7.4-10.4); MONOCYTES 7.6 % (2-11); NEUTROPHILS 59.6 % (40-80); PLATELET COUNT 214 10x3/uL (130-400); RBC 4.46 10x6/uL (4.20-6.10); RDW 16.6 % (11.5-14.5); WBC 8.7 10x3/uL (4.8-10.8)
[2019-04-16 21:33] LABS: UDS - AMPHET NEGATIVE QUAL (NEGATIVE); UDS - BARB NEGATIVE QUAL (NEGATIVE); UDS - BENZO NEGATIVE QUAL (NEGATIVE); UDS - COCAINE POSITIVE QUAL (NEGATIVE); UDS - OPIATE NEGATIVE QUAL (NEGATIVE); UDS - PCP NEGATIVE QUAL (NEGATIVE); UDS - THC NEGATIVE QUAL (NEGATIVE)
[2019-04-16 21:33] LABS: ALBUMIN 2.9 g/dL (3.4-5.0); ANION GAP 14.7 mmol/L (8-16); BILIRUBIN - TOTAL 1.02 mg/dL (0.2-1.3); CALCIUM 8.3 mg/dL (8.5-10.1); CARBON DIOXIDE 22.3 mmol/L (21.0-32.0); CREATININE - SERUM 1.8 mg/dL (0.6-1.3); PROTEIN - SERUM 6.9 g/dL (6.4-8.2)
[2019-04-16 21:38] LABS: MAGNESIUM - SERUM 1.8 mg/dL (1.8-2.4)
[2019-04-16 21:40] LABS: APPEARANCE CLEAR (CLEAR); BILIRUBIN NEGATIVE (NEGATIVE); COLOR YELLOW (YELLOW); GLUCOSE NEGATIVE (NEGATIVE); KETONE NEGATIVE (NEGATIVE); NITRITE NEGATIVE (NEGATIVE); PROTEIN 1+ mg/dL (NEGATIVE); RED CELLS - URINE 0-5 /hpf (0-5); SPECIFIC GRAVITY 1.015 (1.005-1.020); UROBILINOGEN NORMAL (NORMAL); WHITE CELLS - URINE 0-5 /hpf (0-5)
[2019-04-16 21:40] LABS: TROPONIN-I 0.253 ng/mL (0.000-0.060)
[2019-04-16 21:41] LABS: AMORPHOUS SEDIMENT <1+ /lpf (NONE SEEN); BACTERIA NONE SEEN /hpf (NONE SEEN); EPITHELIAL CELLS 0-5 /hpf (0-5)
[2019-04-16 22:05] VITALS: BP 121/87
== END 2019-04-16 22:02 | disposition home or self-care (01) ==
LOC: D.ER 20:25
PROVIDERS: Family Medicine
DX: R06.00 Dyspnea, unspecified (principal); I51.7 Cardiomegaly; I50.9 Heart failure, unspecified

== ENCOUNTER 2019-04-24 12:51 | Inpatient (IN) | payer MEDICARE ==
[~2019-04-24] VITALS: Ht 170.2 cm; Wt 96.8 kg
[2019-04-24 14:17] LABS: BASOPHILS 0.3 % (0-2); EOSINOPHILS 0.4 % (0-7); HEMATOCRIT 35.1 % (42.0-54.0); HEMOGLOBIN 11.9 g/dL (13.5-17.5); IMMATURE GRANULOCYTES 0.2 % (0-5); LYMPHOCYTES 30.4 % (15-50); MCH 26.8 pg (26.0-34.0); MCHC 33.9 g/dL (31.0-37.0); MCV 79.1 fL (80.0-100.0); MEAN PLATELET VOLUME 10.4 fL (7.4-10.4); MONOCYTES 6.7 % (2-11); PLATELET COUNT 218 10x3/uL (130-400); RBC 4.44 10x6/uL (4.20-6.10); RDW 16.4 % (11.5-14.5); WBC 10.3 10x3/uL (4.8-10.8)
[2019-04-24 14:30] LABS: ALBUMIN 3.1 g/dL (3.4-5.0); ANION GAP 13.3 mmol/L (8-16); BILIRUBIN - TOTAL 1.85 mg/dL (0.2-1.3); CALCIUM 8.7 mg/dL (8.5-10.1); CREATININE - SERUM 1.9 mg/dL (0.6-1.3); POTASSIUM - SERUM 4.3 mmol/L (3.5-5.1); PROTEIN - SERUM 6.9 g/dL (6.4-8.2)
[2019-04-25] VITALS (7 sets, daily range): BP systolic 100–129; BP diastolic 75–89; Ht 170.2 cm; Wt 96.8 kg
[2019-04-25 06:03] LABS: APTT 28.7 SECONDS (22.8-39.4); INR 1.34 (0.85-1.17)
[2019-04-25 06:16] LABS: BASOPHILS 0.5 % (0-2); EOSINOPHILS 1.2 % (0-7); HEMOGLOBIN 12.4 g/dL (13.5-17.5); IMMATURE GRANULOCYTES 0.1 % (0-5); LYMPHOCYTES 34.3 % (15-50); MCH 26.7 pg (26.0-34.0); MCHC 33.5 g/dL (31.0-37.0); MCV 79.6 fL (80.0-100.0); MEAN PLATELET VOLUME 11.2 fL (7.4-10.4); MONOCYTES 8.5 % (2-11); NEUTROPHILS 55.4 % (40-80); PLATELET COUNT 210 10x3/uL (130-400); RBC 4.65 10x6/uL (4.20-6.10); RDW 16.9 % (11.5-14.5)
[2019-04-25 06:17] LABS: WBC 7.3 10x3/uL (4.8-10.8)
[2019-04-25 07:09] LABS: CALCIUM 8.9 mg/dL (8.5-10.1); CARBON DIOXIDE 24.9 mmol/L (21.0-32.0); CREATININE - SERUM 1.7 mg/dL (0.6-1.3); MAGNESIUM - SERUM 1.9 mg/dL (1.8-2.4); PHOSPHOROUS 4.4 mg/dL (2.5-4.9); POTASSIUM - SERUM 3.9 mmol/L (3.5-5.1)
--- NOTE | 2019-04-25 07:30 | NUR ---
A/A/0X4. DENIES ANY SOB OR PAIN. RESP EVEN AND UNLABORED ON ROOM AIR. NO REQUESTS VOICED. SL PATENT TO RIGHT AC WITH NO REDNESS OR EDEMA AT SITE. ASSESSMENT COMPLETED AND WILL CONTINUE POC.
--- NOTE | 2019-04-25 15:46 | NUR ---
UP IN SHOWER AT PRESENT TIME.
--- NOTE | 2019-04-25 16:36 | NUR ---
I have reviewed this patient and I concur with the Shift Assessment completed by the Licensed Practical Nurse today this shift.
--- NOTE | 2019-04-25 19:00 | NUR ---
PT CARE ASSUMED. PT IN BED RR EVEN AND UNLABORED. NO S/S OF DISTRESS NOTED. PT TALKING TO HIMSLEF, DENIES HEARING OR SEEING THINGS THAT ARE NOT THERE. CALL LIGHT IN REACH. WILL CTM.
[2019-04-26] VITALS: BP 112/77
[2019-04-26 04:00] VITALS: BP 122/85
--- NOTE | 2019-04-26 04:26 | NUR ---
PT HAS BEEN HAVING OUTBURSTS YELLING AT HIMSELF.
[2019-04-26 06:39] LABS: BASOPHILS 0.4 % (0-2); EOSINOPHILS 2.3 % (0-7); HEMATOCRIT 35.9 % (42.0-54.0); HEMOGLOBIN 12.6 g/dL (13.5-17.5); IMMATURE GRANULOCYTES 0.4 % (0-5); LYMPHOCYTES 25.9 % (15-50); MCH 27.5 pg (26.0-34.0); MCHC 35.1 g/dL (31.0-37.0); MCV 78.2 fL (80.0-100.0); MEAN PLATELET VOLUME 10.8 fL (7.4-10.4); MONOCYTES 9.5 % (2-11); NEUTROPHILS 61.5 % (40-80); PLATELET COUNT 232 10x3/uL (130-400); RBC 4.59 10x6/uL (4.20-6.10); RDW 16.4 % (11.5-14.5); WBC 7.5 10x3/uL (4.8-10.8)
[2019-04-26 06:54] LABS: ANION GAP 11.4 mmol/L (8-16); CALCIUM 9.1 mg/dL (8.5-10.1); CARBON DIOXIDE 29.8 mmol/L (21.0-32.0); CREATININE - SERUM 1.9 mg/dL (0.6-1.3); MAGNESIUM - SERUM 1.8 mg/dL (1.8-2.4); PHOSPHOROUS 4.7 mg/dL (2.5-4.9)
[2019-04-26 06:59] LABS: POTASSIUM - SERUM 3.2 mmol/L (3.5-5.1)
[2019-04-26 08:16] VITALS: BP 127/92
--- NOTE | 2019-04-26 11:26 | NUR ---
PT HAS LEFT THE FLOOR TWICE THIS MORNING AND FOUND OUTSIDE THE HOSPITAL. HE HAD REMOVED HIS HEART MONITOR AND LEFT IT ON THE BED. PT BROUGHT BACK TO ROOM AND EXPLAINED WHY HE CANNOT LEAVE THE ROOM AND WILL PLACE BED ALARM ON HIS BED. HE REFUSED THE ALARM STATING IT HURTS HIS BACK. SIGNED THE FORM OF REFUSAL AND PLACED ON HIS CHART. CONTINUES TO TALK AND MUMBLE WHEN IN ROOM. WHEN ASKED IF HE KNOWS PLACE, YEAR, NAME, BIRTHDAY HE IS ORIENTED X 4.
--- NOTE | 2019-04-26 12:36 | NUR ---
WENT IN ROOM TO CHECK ON PT AND IV HAD BEEN RIPPED OUT OF ARM, GOWN ON FLOOR AND PT NOT IN ROOM. CLEAN RICE GRADER AND REEL TENDER, SECURITY AND [facility] SARAVIA APN NOTIFIED.
--- NOTE | 2019-04-26 13:10 | NUR ---
PT WAS FOUND DOWN STAIRS OUTSIDE OF HOSPITAL. WHEN I WENT DOWN TO SEE HIM, HE WAS WALKING ACROSS THE PARKING LOT. PT IS USET OF ILLICIT DRUGS AND HAS REFUSED TO GIVE URINE SPEC FOR UDS TESTING. PT STATES HE WAS JUST GOING OUT FOR SOME FRESH AIR (IN THE RAIN). SECURITY NOTIFIED OF PT BACK IN ROOM AND CAME UP TO OBSERVE WHILE ALAINA TALKED WITH PT. DR. PORTER ALSO TALKED WITH HIM AND TOLD HIM HE COULD NOT BE GOING OUT AND WOULD HE LET US RESTART HIS IV AND HE AGREED TO THIS.
--- NOTE | 2019-04-26 15:06 | NUR ---
PT HAS BEEN MOVED TO ROOM 2103 SO HE CAN BE WATCHED MORE CLOSELY. WHEN I WENT IN TO HIS ROOM AND ASKED IF HE WAS READY FOR ME TO START HIS IV, HE STATED HE WANTS TO GO HOME. SPOKE WITH HIS MOTHER AND SHE STATES SHE DOES NOT WANT HIM TO COME HOME UNTIL HE HAS HAD A PSYCHIATRIC WORKUP. SHE ALSO STATES SHE IS HIS LEGAL GUARDIAN AND WILL FAX THE PAPERS TO US. DR. ANTONIO HERE TO SEE PT.
--- NOTE | 2019-04-26 16:10 | MORECARE ---
CASE MANAGEMENT DISCHARGE SUMMARY PATIENT: MAIRA LYN UNIT: [id number] ADM DATE: 04/24/19 AGE: 43 : 77 SEX: M ROOM/BED: D.2104 AUTHOR: CARIE ENGLAND PHYSICIAN: REFERRING PHYSICIAN: BARBARA MORGAN MD DATE OF SERVICE: 04/26/19 Discharge Plan Patient Name: MAIRA LYN [facility] [facility] 1975 Planned Disposition: Home Anticipated Discharge Date: 04/26/19 Discharge Date: Expected LOS: 2 Initial Reviewer: [email or web address] Initial Review Date: 04/26/2019 Generated: 04/26/19 5:09 pm DCPIA - Discharge Planning Initial Assessment Updated by [email or web address]: Familia Rodriguez on 04/26/19 4:07 pm * Is the patient Alert and Oriented? Yes * How many steps to enter\exit or inside your home? NONE * PCP NONE; HAS NOT FOLLOWED UP WITH [facility] (INFORMATION PROVIDED DURING PREVIOUS HOSPITAL STAY.) * Pharmacy [facility] IN [place] * Preadmission Environment Home with Family * ADLs Independent * Equipment None * Other Equipment NO MEDICAL EQUIPMENT PROVIDER PREFERENCE * List name and contact numbers for known caregivers / representatives who currently or will assist patient after discharge: TIMOTHY LYN, MOTHER, * Verbal permission to speak to the caregivers and representatives has been obtained from the patient. N/A * Community resources currently utilized None * Please name any agencies selected above. NONE * Additional services required to return to the preadmission environment? Yes * Can the patient safely return to the preadmission environment? Yes * Has this patient been hospitalized within the prior 30 days at any hospital? Yes Patient Name: MAIRA LYN Page [phone] at 1610 All edits/amendments must be made on the electronic document DICTATION DATE: 04/26/191608 WATER MANAGER: JOSE 04/26/191608 RPT#: [id number] DC DATE: STATUS: ADM IN [facility] [address] [place] [address] END OF REPORT
--- NOTE | 2019-04-26 16:25 | NUR ---
I have reviewed this patient and I concur with the Shift Assessment completed by the Licensed Practical Nurse today this shift.
--- NOTE | 2019-04-26 16:28 | MORECARE ---
CASE MANAGEMENT DISCHARGE SUMMARY PATIENT: MAIRA LYN UNIT: [id number] ADM DATE: 04/24/19 AGE: 43 : [birth year] SEX: M ROOM/BED: D.2106 AUTHOR: TOMÁS,DOC PHYSICIAN: REFERRING PHYSICIAN: BARBARA MORGAN MD DATE OF SERVICE: 04/26/19 Discharge Plan Patient Name: MAIRA LYN Facility: [facility]:[place] : 1975 Planned Disposition: Home Anticipated Discharge Date: 04/26/19 Discharge Date: Expected LOS: 2 Initial Reviewer: [id number] Initial Review Date: 04/26/2019 Generated: 04/26/19 5:27 pm Comments DCP- Discharge Planning Updated by [id number]: Familia Rodriguez on 04/26/19 3:[address] Patient Name: MAIRA LYN Admission Status: ER Accout number: [id number] Admission Date: 04-24-2019 : 1975 Admission Diagnosis:SHORTNESS OF BREATH Attending: CLALIE MORGAN Current LOS: 2 Anticipated DC Date: 04-26-2019 Planned Disposition: Home Primary Insurance: MEDICARE A & B Discharge Planning Comments: CM RECEIVED ORDER THAT PT DOES NOT HAVE OXYGEN AT HOME AND MAY WANT DRUG AND ALCOHOL REHAB. AT ABOUT 0800, CM MET WITH PT IN ROOM TO DISCUSS DISCHARGE PLANNING AND NEEDS. PT REPORTS LIVING AT HOME INDEPENDENTLY WITH HIS MOTHER. PT HAS NO MEDICAL EQUIPMENT AND NO OUTSIDE SERVICES ASSISTING IN THE HOME. PT HAD EQUIPMENT WHEN HE WAS ON HOSPICE BUT THEY PICKED UP ALL EQUIPMENT WHEN HE REVOKED HOSPICE. PT STATES NOT HAVING PRIMARY CARE DOCTOR BECAUSE THERE ARE NOT ANY GOOD DOCTORS ANYWHERE. CM ASKED ABOUT [facility] IN [place] CM PREVIOUSLY REFERRED PT THERE. PT DID NOT RESPOND. CM ASKED PT IF HE EVEN CALLED, PT STATES NO. CM DISCUSSED AVAILABILITY OF HOME HEALTH, REHAB SERVICES AND MEDICAL EQUIPMENT. PT DENIES DISCHARGE NEEDS TO GO HOME BUT IS THINKING ABOUT GOING TO REHAB FOR DRUGS. CM ASKED PT WHAT DRUGS HE IS USING. PT STATES COCAINE BY SMOKING. PT LAST USED 4 DAYS AGO AND DOES NOT KNOW HOW OFTEN HE USES COCAINE. PT DENIES USE OF OTHER DRUGS. PT STATES HE DOES NOT LIKE TO TAKE PILLS, EVEN WHEN THE DOCTOR TELLS HIM TO TAKE THEM. CM ASKED IF PT DRINKS ALCOHOL, PT STATES HE DRINKS GIN 2-3 TIMES PER DAY. HE DOES NO KNOW WHO MUCH HE DRINKS AND DOES NOT KNOW WHEN THE LAST TIME HE HAD A DRINK OF ALCOHOL. PT STATES HE DOES NOT WANT TO GO BACK TO [facility] THOSE PEOPLE DON'T KNOW WHAT THEY ARE DOING. PT WOULD LIKE A REHAB FACILITY IN [place] TRAFFIC IS NOT BAD THERE. CM ASKED ABOUT MENTAL ILLNESS, PT STATES HE DOES NOT. CM ASKED ABOUT SCHIZIPHRENIA PT'S MOTHER HAS SAID ON PREVIOUS ADMISSIONS THAT PT HAS SCHIZOPHRENIA. PT DENIES THIS. PT STATES HE HAS HAD PROBLEMS WITH DEPRESSION AND THAT IS IT. PT REPORTS HE WILL HAVE HIS DAD TO PICK HIM UP FOR DISCHARGE HOME. IMPORTANT MESSAGE FROM MEDICARE PROVIDED AND EXPLAINED. LATER, PT WAS NOT IN ROOM, PT WAS RETURNED TO ROOM. CM SPOKE TO PT AND ADVISED PT THAT HE IS ON A FLUID RESTRICTION. PT STATES "OK". CM ASKED PT ABOUT GOING TO DRUG REHAB WHEN MEDICALLY STABLE, PT STATES HE WANTS TO GO HOME AND IS NOT GOING TO REHAB. CM INFORMED CM THAT CM WILL VISIT WITH PT WHEN CLOSER TO DISCHARGE FROM THE HOSPITAL AND WHEN PT FEELS BETTER TO DISCUSS REHAB AGAIN. PT STATES "OK." CM WAS LATER ADVISED THAT PT LEFT HIS ROOM, HE HAD RIPPED HIS IV OUT AND LEFT IN HIS OWN CLOTHES. PT WAS LOCATED OUTSIDE HOSPITAL AND BROUGHT IN BY SECURITY. NURSING HASH SLINGER SPOKE TO PT'S MOTHER WHO REPORTED HAVING GUARDIANSHIP AND SHE IS SUPPOSED TO FAX LEGAL PAPERS TO HOSPITAL WITHIN TWO HOURS PT IS WANTING TO LEAVE. PT NOW STATING HE WANTS TO GO HOME AND DOES NOT WANT TO GO TO REHAB FOR DRUG AND ALCOHOL ABUSE. CM TO CONTINUE TO FOLLOW AND ASSIST IF NEEDED. Pipe Line Gauger: Familia Rodriguez DCPIA - Discharge Planning Initial Assessment Updated by [id number]: Familia Rodriguez on 04/26/19 4:07 pm * Is the patient Alert and Oriented? Yes * How many steps to enter\\exit or inside your home? NONE * PCP NONE; HAS NOT FOLLOWED UP WITH [facility] (INFORMATION PROVIDED DURING PREVIOUS HOSPITAL STAY.) * Pharmacy [facility] IN [place] * Preadmission Environment Home with Family * ADLs Independent * Equipment None * Other Equipment NO MEDICAL EQUIPMENT PROVIDER PREFERENCE * List name and contact numbers for known caregivers / representatives who currently or will assist patient after discharge: TIMOTHY LYN, MOTHER, * Verbal permission to speak to the caregivers and representatives has been obtained from the patient. N/A * Community resources currently utilized None * Please name any agencies selected above. NONE * Additional services required to return to the preadmission environment? Yes * Can the patient safely return to the preadmission environment? Yes * Has this patient been hospitalized within the prior 30 days at any hospital? Yes Coverage Notice Reviewer: [id number] Lana Rodriguez Notice Issued Date-Time: 04/26/2019 8:10 Notice Type: IM Discharge Notice Notice Delivered To: Patient Relationship to Patient: Curbing Stonecutter Name: Delivery Method: HAND - Hand Delivered Belle Days: Prior Verbal Notification: Recipient Understood Notice: Yes Recipient Signature: Yes Med Rec Note Co-signed by Attending: Coverage Notice Comment: Last DP export: 04/26/19 3:10 p Patient Name: MAIRA LYN Page [phone] at 1628 All edits/amendments must be made on the electronic document DICTATION DATE: 04/26/191626 DOMESTIC TRAVEL CONSULTANT: JOSE 04/26/191626 RPT#: [id number] DC DATE: STATUS: ADM IN [facility] [address] [place] [address] END OF REPORT
--- NOTE | 2019-04-26 17:05 | NUR ---
SITTING UP AT BEDSIDE EATING EVENIGN MEAL. HAS REFUSED MEDS AND DOES NOT WANT IV RESTARTED.
--- NOTE | 2019-04-26 17:57 | NUR ---
PTS MOTHER BROUGHT LEGAL GUARDIANSHIP PAPERS. COPY MADE AND PLACED IN CHART.
--- NOTE | 2019-04-26 19:32 | NUR ---
PT CARE ASSUMED. BEDSIDE SHIFT REPORT COMPLETE. PT IN ROOM. RR EVEN AND UNLABORED. NO S/S OF DISTRESS NOTED. PT APPEARS AGGITATED AND IS MUMBLING. HE APPEARS TO BE TALKING TO SOMETHING THAT IS NOT THERE. A&O X4. DENIES NEEDS AT THIS TIME. WILL CTM.
--- NOTE | 2019-04-27 00:12 | NUR ---
PT REFUSED PM MEDICATION. PT REFUSING TO INITATE IV ACCESS. PT REFUSING TELEMETRY.
--- NOTE | 2019-04-27 00:40 | NUR ---
PT REFUSED TO HAVE VITAL SIGNS TAKEN
[2019-04-27 04:57] LABS: BASOPHILS 0.3 % (0-2); EOSINOPHILS 2.4 % (0-7); HEMATOCRIT 33.3 % (42.0-54.0); HEMOGLOBIN 11.2 g/dL (13.5-17.5); IMMATURE GRANULOCYTES 0.1 % (0-5); LYMPHOCYTES 31.3 % (15-50); MCHC 33.6 g/dL (31.0-37.0); MCV 77.3 fL (80.0-100.0); MEAN PLATELET VOLUME 10.8 fL (7.4-10.4); MONOCYTES 10.3 % (2-11); NEUTROPHILS 55.6 % (40-80); PLATELET COUNT 223 10x3/uL (130-400); RBC 4.31 10x6/uL (4.20-6.10); RDW 16.3 % (11.5-14.5); WBC 7.1 10x3/uL (4.8-10.8)
[2019-04-27 05:29] LABS: ANION GAP 10.4 mmol/L (8-16); CALCIUM 8.4 mg/dL (8.5-10.1); CARBON DIOXIDE 29.8 mmol/L (21.0-32.0); MAGNESIUM - SERUM 1.6 mg/dL (1.8-2.4); PHOSPHOROUS 3.9 mg/dL (2.5-4.9); POTASSIUM - SERUM 3.2 mmol/L (3.5-5.1)
[2019-04-27 05:31] LABS: CREATININE - SERUM 1.3 mg/dL (0.6-1.3)
--- NOTE | 2019-04-27 05:57 | NUR ---
PT EDUCATED ON FLUID RESTRICTION AND WAS FOUND DRINKING WATER FROM THE SINK.
--- NOTE | 2019-04-27 07:00 | NUR ---
RECEIVED REPORT. ASSUMED CARE OF PATIENT. PATIENT RESTING ON RIGHT LATERAL SIDE WITH EYES CLOSED. RESP EVEN AND UNLABORED. NO DISTRESS. CALL LIGHT WITHIN REACH. CRACKERS AND PEANUT BUTTER NOTED THROUGHOUT PATIENT ROOM ON THE FLOOR AND COUNTERTOPS, PLACED IN TRASH.
--- NOTE | 2019-04-27 09:11 | NUR ---
TOOK ALL ORAL MEDICATIONS WITHOUT DIFFICULTY OR HESITANCY. NO DISTRESS.
--- NOTE | 2019-04-27 09:13 | NUR ---
K+ AND MAGNESIUM PROTOCOL INITIATED AT THIS TIME. NO DISTRESS.
[2019-04-27 09:36] VITALS: BP 118/81
--- NOTE | 2019-04-27 10:59 | NUR ---
PATIENT FOUND AT COMPUTER IN ROOM WITH YOU TUBE VIDEOS PLAYING. PATIENT ASKED TO PLEASE STAY OFF OF THE COMPUTER. THIS EXACT SAME SITUATION OCCURED IN THE THIS EXACT SAME ROOM WHEN PATIENT WAS HERE LAST MONTH. CAMPUS POLICE OFFICER NOTIFIED WHO INTURN NOTIFIED MACHINE II ENGRAVER TOM. MACHINE II ENGRAVER CAME TO UNIT AND REMOVED INTERNET ICON FROM HOME SCREEN AND TASK BAR.
--- NOTE | 2019-04-27 12:05 | NUR ---
PATIENT REFUSE LABORER LIGHT AGAIN AT THIS TIME. PATIENT IS ON FLUID RESTRICTION AND KEEPS REQUESTING JUICE. PATIENT REQUESTING LOTION, LOTION AT BEDSIDE ON TABLE THAT IS FULL. PATIENT KEEPS TURNING REFUSE LABORER LIGHT TO HAVE STAFF COME INTO THE ROOM FOR REDUNDENT REQUESTS.
[2019-04-27 13:42] VITALS: BP 100/72
--- NOTE | 2019-04-27 16:48 | NUR ---
PATIENT AGAIN HAD YOUTUBE ACCESSED ON THE COMPUTER IN PATIENT ROOM AND THIS TIME PATIENTS NEICE AT COMPUTER. PATIENT LYING IN BED. INFORMED VISITORS THEY CAN NOT BE ON THE COMPUTER AND THAT THE PATIENT HAS BEEN ASKED 3 X TODAY TO NOT BE ON THE COMPUTER AND IF IT HAPPENS AGAIN, THE [id number] WILL BE REMOVED FROM THE BACK OF THE COMPUTER. PATIENT AND FAMILY VERBALIZED THEIR UNDERSTANDING AND ON SITE COORDINATOR NOTIFIED.
[2019-04-27 18:25] VITALS: BP 114/76
--- NOTE | 2019-04-27 18:29 | NUR ---
PATIENT AT NURSES STATION ASKING FOR SALT, MS.CATRACHITA PROVIDED TO PATIENT. PATIENT BEING EXTREMELY LOUD AND ASKING TO GO OUTSIDE, PATIENT IS NOT ALLOWED TO LEAVE THE FLOOR UNLESS WITH MEDICAL PERSONNEL.
--- NOTE | 2019-04-27 19:13 | NUR ---
RECIEVED BEDSIDE REPORT. ALERT AND ORIENTED X4. UP AD MATT TO B/R. REFUSES SCD AND IV. REMAINS ON 1500CC FLUID RESTRICTION AND NONCOMPLIANT. EDEMA TO RIGHT LOWER EXTREMITY AND FOOT DEPENDENT EDEMA. DENIES ANY NEEDS AT THIS TIME.
[2019-04-27 20:00] VITALS: BP 125/71
[2019-04-28] VITALS: BP 108/73
--- NOTE | 2019-04-28 01:28 | NUR ---
WALKED OFF FLOOR WITH THIS NURSE FOLLOWING HIM AND YELLED FOR NURSES TO CALL SECURITY. HE GOT ON ELEVATOR AND WAVED AT THIS NURSE AT THAT TIME THIS NURSE GOT ON ADJACENT ELEVATOR AND FOLLOWED HIM DOWN TO THE FIRST FLOOR. WENT TO [facility] OFF TO REQUEST SHE LET SECURITY KNOW HIS LOCATION. AFTER SEARCHING BOTTOM AND SECOND FLOOR WE WNT DOWN TO FIRST FLOOR AND WENT ON THE BACKSIDE OF ADMINISTRATION TO CHECK BATHROOMS. HEARD A DOOR CLOSE AND WHEN INVESTIGATING THE SOUND SAW MEDICAID DOOR WAS AJAR. NO LIGHTS WERE ON SO THE DOOR WAS PULLED CLOSED AND LOCKED. WHEN ATTEMPTING TO LEAVE AREA HEARD NOISES FROM INSIDE OF OFFICES. CALLED SECURITY TO MEET US AT THE OFFICES. WHILE STANDING NEXT TO DOOR PT CAME OUT AND HAD 2 SWEATERS ON AND BAG FULL OF LOTION. ESCORTED BACK TO HIS ROOM. MOTHER HAD BEEN NOTIFIED OF HIM LEAVING FLOOR EARLIER. CALLED MOTHER AGAIN AND EXPLAINED THAT WE ARE UNABLE TO DO A ONE ON ONE ON HIM. AND COULD NOT CONRADO HIM AROUND. THAT IF HE NEEDED TO BE WATCHED THAN SHE NEEDED TO COME UP HERE AND SIT WITH HIM. STATED " I UNDERSTAND". SECURITY AND ANOTHER NUSE WENR
--- NOTE | 2019-04-28 02:00 | NUR ---
NOTIFIED YANNA SARAVIA OF INCIDENT.
[2019-04-28 04:28] LABS: BASOPHILS 0.7 % (0-2); EOSINOPHILS 0.9 % (0-7); HEMATOCRIT 35.6 % (42.0-54.0); HEMOGLOBIN 12.1 g/dL (13.5-17.5); IMMATURE GRANULOCYTES 0.3 % (0-5); LYMPHOCYTES 35.6 % (15-50); MCH 26.8 pg (26.0-34.0); MCV 78.8 fL (80.0-100.0); MONOCYTES 9.2 % (2-11); NEUTROPHILS 53.3 % (40-80); PLATELET COUNT 250 10x3/uL (130-400); RBC 4.52 10x6/uL (4.20-6.10); RDW 16.5 % (11.5-14.5); WBC 7.6 10x3/uL (4.8-10.8)
[2019-04-28 04:46] LABS: ANION GAP 9.1 mmol/L (8-16); CALCIUM 8.6 mg/dL (8.5-10.1); CARBON DIOXIDE 31.6 mmol/L (21.0-32.0); CREATININE - SERUM 1.6 mg/dL (0.6-1.3); MAGNESIUM - SERUM 1.7 mg/dL (1.8-2.4); PHOSPHOROUS 3.5 mg/dL (2.5-4.9)
[2019-04-28 04:48] LABS: POTASSIUM - SERUM 3.7 mmol/L (3.5-5.1)
[2019-04-28 08:00] VITALS: BP 155/72
--- NOTE | 2019-04-28 08:00 | NUR ---
NOTIFIED AT THIS TIME THAT PATIENT HAS LEFT THE UNIT. GREY INSPECTOR NOTIFIED AND SECURITY NOTIFIED.
--- NOTE | 2019-04-28 08:56 | NUR ---
SECURITY TO UNIT AND NOTIFIED THIS TROMBONE SLIDE ASSEMBLER THAT PATIENT HAS LEFT HOSPITAL PROPERTY. SECURITY CAMPO STATES HE SPOKE WITH THE PATIENT AND TOLD THE PATIENT HE NEEDED TO COME BACK TO THE PATIENTS ROOM WITH HIM AND PATIENT REFUSED. PATIENT LEFT HOSPITAL PROPERTY. HOP PICKER AND CHARGE NURSE AWARE OF PATEINT LEAVING HOSPITAL PROPERTY. THIS TROMBONE SLIDE ASSEMBLER INSTRUCTED TO CALL THE PATIENTS MOTHER, HIS LEGAL GAURDIAN, TO NOTIFY HER THAT HE HAS LEFT.
--- NOTE | 2019-04-28 08:59 | NUR ---
SPOKE WITH MRS. LYN, PATIENT MOTHER AND NOTIFIED HER THAT PATIENT HAS LEFT THE FACILITY AND THAT SECURITY SPOKE WITH HIM AND TRIED TO GET HIM TO COME BACK TO THE HOSPITAL AND PATIENT REFUSED AND TOOK OFF WALKING DOWN THE ROAD. PATIENTS MOTHER THANKED THIS OPERATIONS SCHEDULER FOR CALLING AND HAD NO QUESTIONS FOR THIS OPERATIONS SCHEDULER SHE ENDED THE PHONE CONVERSATION. PATIENTS MOTHER VERY PLEASANT WHEN NOTIFYING HER OF LEAVING THE HOSPITAL.
--- NOTE | 2019-04-28 09:52 | NUR ---
PATIENT HAS NOW DECIDED TO WALK BACK ON THE UNIT AND GO BACK TO HIS ROOM. PER POULTRY DEBEAKER, HIS ACTIONS ARE OK TO RETURN TO THE UNIT.
--- NOTE | 2019-04-28 10:05 | NUR ---
SPOKE WITH RACHID SARAVIA APN ABOUT PATIENT LEAVING FACILITY AGAIN, BEING GONE AND THEN COMING BACK. RACHID STATED HIS BEHAVIOR IS OUT OF CONTROL OF THE PHYSICIANS AND WANTED TO KNOW WHAT ADMINISTRATION IS DOING ABOUT THIS PATIENT. INFORMED THAT ADMINISTRATION WAS NOT NOTIFIED, WEATHERIZATION AND HOUSING INSPECTOR DID NOT WANT TO WAKE THEM UP AT 1AM AND TELL THEM WHAT WAS GOING ON. RACHID WAS PROVIDED WITH [employer] PHONE NUMBER SHE WOULD NOTIFY ADMINISTRATION DIRECTLY BECAUSE THIS PATIENT IS UNABLE TO BE TREATED, PATIENT NEEDS TO BE IN A [facility] FACILITY. CHARGE NURSE NOTIFIED THAT YANNA IS CONTACTING ADMINISTRATION.
--- NOTE | 2019-04-28 11:06 | NUR ---
RECEIVED CALL FROM LAINEY THAT SHE HAS SPOKEN WITH ACNO, ALAINA WHOM IS CONTACTING SARAH CANADA IN RISK MANAGEMENT TO DISCUSS PATIENTS BEHAVIOR. IF PATIENT LEAVES FACILITY AND TRIES TO COME BACK, INSTRUCTED TO HAVE THE PATIENT ARRESTED FOR LOITERING? AWAITING INSTRUCTION FROM ADMINISTRATION. AT THIS TIME, PATIENT IS LYING IN BED, EPIC INTERFACE ANALYST LIGHT, MAKING SEVERAL REQUESTS FOR FLUIDS, PATIENT HAS HAD MORE THAN 1500 ML THIS AM. SMALL CUP OF ICE CHIPS PROVIDED. PATIENT IS IN NO DISTRESS. CALL LIGHT WITHIN REACH.
--- NOTE | 2019-04-28 12:07 | NUR ---
RECEIVED CALL FROM DANIEL FOLEY, AND INFORMED THAT PATIENT WILL BE MOVING TO THE ICU SO HE CAN BE WATCHED ONE ON ONE AND NOT BE ABLE TO LEAVE THE UNIT. THIS HOG COUNTER INSTRUCTED THAT IN THE EVENT WHILE BEING TAKEN OVER TO THE ICU THAT PATIENT TRIES TO ESCAPE OF GO AMA, THEN LET THE PATIENT GO AMA.
--- NOTE | 2019-04-28 12:18 | NUR ---
THIS EXHIBIT CLEANER WAS GOING TO PATIENT ROOM TO INFORM HIM OF TRANSFER AND GATHER HIS BELONGINGS, PATIENT EXISTED ROOM AND REQUESTED TO GO OUTSIDE. INFORMED PATIENT THAT HE IS BEING TRANSFERRED TO THE ICU AND THAT THIS EXHIBIT CLEANER CANNOT LET HIM GO OUTSIDE. PATIENT STATED "I CAN'T GO OUTSIDE" THIS EXHIBIT CLEANER REPLIED NO, I NEED TO TRANSFER YOU TO THE ICU. PATIENT GETTING LOUD AT NURSING STATION USING PROFANITY, THIS EXHIBIT CLEANER IS NOT GOING TO ARGUE WITH PATIENT AND WALKED OFF AND PATIENT LEFT UNIT. SPOKE TO DANIEL FOLEY AGAIN AND INFORMED HER OF WHAT HAS TRANSPIRED SINCE LAST SPEAKING WITH HER AND SHE SAID THE PATIENT LEFT, HE IS CONSIDERED AMA, TAKE HIM OUT OF THE SYSTEM, IF HE RETURNS TO THE UNIT CALL THE POLICE AND HAVE HIM ARRESTED. DANCE HALL HOSTESS MARILOU MADE AWARE OF LAST INSTRUCTIONS FROM ALAINA SANCHEZ.
--- NOTE | 2019-04-28 12:25 | NUR ---
AMA PAPERWORK WAS BEING PRINTED WHEN PATIENT STATED HE WAS GOING OUTSIDE, PATIENT LEFT UNIT AMA PAPERWORK NOT SIGNED PATIENT REFUSED HE WAS LEAVING THE UNIT.
--- NOTE | 2019-04-28 12:29 | NUR ---
CALLED PATIENTS MOTHER AND EXPLAINED THAT WE HAVE LET PATIENT RETURN TO THE UNIT AND NOW HE HAS LEFT AGAIN AND THAT WE WERE GOING TO TRANSFER HIM TO ICU FOR ONE ON ONE CARE AND PATIENT GOT UPSET AND LOUD AND LEFT THE UNIT AGAIN AND THE DECISION OF ADMINISTRATION IS THAT PATIENT IS NOW DISCHARGED AMA, WILL NOT BE PERMITTED TO RETURN TO THE HOSPITAL AND IF HE COMES BACK IN A FEW HOURS WANTING HIS ROOM BACK, THE POLICE WILL BE CALLED. PATIENTS MOTHER VERY PLEASANT AND KIND AND THANKED THIS CONTRACTOR BROOMCORN THRESHING FOR CALLING AND STATES SHE JUST DOESN'T UNDERSTAND HIS BEHAVIOR AND AGAIN THANKED THIS CONTRACTOR BROOMCORN THRESHING FOR CALLING.
--- NOTE | 2019-04-29 07:44 | MORECARE ---
CASE MANAGEMENT DISCHARGE SUMMARY PATIENT: MAIRA LYN UNIT: [id number] ADM DATE: 04/24/19 AGE: 43 : [birth year] SEX: M ROOM/BED: D.5359 AUTHOR: CARIE ENGLAND PHYSICIAN: REFERRING PHYSICIAN: BARBARA MORGAN MD DATE OF SERVICE: 04/29/19 Discharge Plan Patient Name: MAIRA LYN Facility: [facility]:[place] : 1975 Planned Disposition: Home Anticipated Discharge Date: 04/28/19 Discharge Date: 04/28/2019 Expected LOS: 4 Initial Reviewer: [id number] Initial Review Date: 04/26/2019 Generated: 04/29/19 8:44 am Comments DCP- Discharge Planning Updated by [email or web address]: Familia Rodriguez on 04/26/19 3:[address] Patient Name: MAIRA LYN Admission Status: ER Accout number: [id number] Admission Date: 04-24-2019 : 1975 Admission Diagnosis:SHORTNESS OF BREATH Attending: CALLIE MORGAN Current LOS: 2 Anticipated DC Date: 04-26-2019 Planned Disposition: Home Primary Insurance: MEDICARE A & B Discharge Planning Comments: CM RECEIVED ORDER THAT PT DOES NOT HAVE OXYGEN AT HOME AND MAY WANT DRUG AND ALCOHOL REHAB. AT ABOUT 0800, CM MET WITH PT IN ROOM TO DISCUSS DISCHARGE PLANNING AND NEEDS. PT REPORTS LIVING AT HOME INDEPENDENTLY WITH HIS MOTHER. PT HAS NO MEDICAL EQUIPMENT AND NO OUTSIDE SERVICES ASSISTING IN THE HOME. PT HAD EQUIPMENT WHEN HE WAS ON HOSPICE BUT THEY PICKED UP ALL EQUIPMENT WHEN HE REVOKED HOSPICE. PT STATES NOT HAVING PRIMARY CARE DOCTOR BECAUSE THERE ARE NOT ANY GOOD DOCTORS ANYWHERE. CM ASKED ABOUT [facility] IN [place] CM PREVIOUSLY REFERRED PT THERE. PT DID NOT RESPOND. CM ASKED PT IF HE EVEN CALLED, PT STATES NO. CM DISCUSSED AVAILABILITY OF HOME HEALTH, REHAB SERVICES AND MEDICAL EQUIPMENT. PT DENIES DISCHARGE NEEDS TO GO HOME BUT IS THINKING ABOUT GOING TO REHAB FOR DRUGS. CM ASKED PT WHAT DRUGS HE IS USING. PT STATES COCAINE BY SMOKING. PT LAST USED 4 DAYS AGO AND DOES NOT KNOW HOW OFTEN HE USES COCAINE. PT DENIES USE OF OTHER DRUGS. PT STATES HE DOES NOT LIKE TO TAKE PILLS, EVEN WHEN THE DOCTOR TELLS HIM TO TAKE THEM. CM ASKED IF PT DRINKS ALCOHOL, PT STATES HE DRINKS GIN 2-3 TIMES PER DAY. HE DOES NO KNOW WHO MUCH HE DRINKS AND DOES NOT KNOW WHEN THE LAST TIME HE HAD A DRINK OF ALCOHOL. PT STATES HE DOES NOT WANT TO GO BACK TO [facility] THOSE PEOPLE DON'T KNOW WHAT THEY ARE DOING. PT WOULD LIKE A REHAB FACILITY IN [place] TRAFFIC IS NOT BAD THERE. CM ASKED ABOUT MENTAL ILLNESS, PT STATES HE DOES NOT. CM ASKED ABOUT SCHIZIPHRENIA PT'S MOTHER HAS SAID ON PREVIOUS ADMISSIONS THAT PT HAS SCHIZOPHRENIA. PT DENIES THIS. PT STATES HE HAS HAD PROBLEMS WITH DEPRESSION AND THAT IS IT. PT REPORTS HE WILL HAVE HIS DAD TO PICK HIM UP FOR DISCHARGE HOME. IMPORTANT MESSAGE FROM MEDICARE PROVIDED AND EXPLAINED. LATER, PT WAS NOT IN ROOM, PT WAS RETURNED TO ROOM. CM SPOKE TO PT AND ADVISED PT THAT HE IS ON A FLUID RESTRICTION. PT STATES "OK". CM ASKED PT ABOUT GOING TO DRUG REHAB WHEN MEDICALLY STABLE, PT STATES HE WANTS TO GO HOME AND IS NOT GOING TO REHAB. CM INFORMED CM THAT CM WILL VISIT WITH PT WHEN CLOSER TO DISCHARGE FROM THE HOSPITAL AND WHEN PT FEELS BETTER TO DISCUSS REHAB AGAIN. PT STATES "OK." CM WAS LATER ADVISED THAT PT LEFT HIS ROOM, HE HAD RIPPED HIS IV OUT AND LEFT IN HIS OWN CLOTHES. PT WAS LOCATED OUTSIDE HOSPITAL AND BROUGHT IN BY SECURITY. NURSING CRANE OILER SPOKE TO PT'S MOTHER WHO REPORTED HAVING GUARDIANSHIP AND SHE IS SUPPOSED TO FAX LEGAL PAPERS TO HOSPITAL WITHIN TWO HOURS PT IS WANTING TO LEAVE. PT NOW STATING HE WANTS TO GO HOME AND DOES NOT WANT TO GO TO REHAB FOR DRUG AND ALCOHOL ABUSE. CM TO CONTINUE TO FOLLOW AND ASSIST IF NEEDED. Combat Engineer: Familia Rodriguez DCPIA - Discharge Planning Initial Assessment Updated by [id number]: Familia Rodriguez on 04/26/19 4:07 pm * Is the patient Alert and Oriented? Yes * How many steps to enter\\exit or inside your home? NONE * PCP NONE; HAS NOT FOLLOWED UP WITH [facility] (INFORMATION PROVIDED DURING PREVIOUS HOSPITAL STAY.) * Pharmacy [facility] IN [place] * Preadmission Environment Home with Family * ADLs Independent * Equipment None * Other Equipment NO MEDICAL EQUIPMENT PROVIDER PREFERENCE * List name and contact numbers for known caregivers / representatives who currently or will assist patient after discharge: TIMOTHY LYN, MOTHER, * Verbal permission to speak to the caregivers and representatives has been obtained from the patient. N/A * Community resources currently utilized None * Please name any agencies selected above. NONE * Additional services required to return to the preadmission environment? Yes * Can the patient safely return to the preadmission environment? Yes * Has this patient been hospitalized within the prior 30 days at any hospital? Yes Coverage Notice Reviewer: [id number] Lana Rodriguez Notice Issued Date-Time: 04/26/2019 8:10 Notice Type: IM Discharge Notice Notice Delivered To: Patient Relationship to Patient: Steward/Stewardess Third Class Name: Delivery Method: HAND - Hand Delivered Belle Days: Prior Verbal Notification: Recipient Understood Notice: Yes Recipient Signature: Yes Med Rec Note Co-signed by Attending: Coverage Notice Comment: Last DP export: 04/26/19 3:28 p Patient Name: MAIRA LYN Page [phone] at 0744 All edits/amendments must be made on the electronic document DICTATION DATE: 04/29/19743 BUDGET EXAMINER: JOSE 04/29/1943 RPT#: [id number] DC DATE:04/28/19 STATUS: DIS IN [facility] [address] [place] [address] END OF REPORT
--- NOTE | 2019-05-06 12:27 | CN ---
PATIENT NAME:MAIRA LYN MEDICAL RECORD: [id number] : [birth year] LOCATION:[facility] ADMIT DATE: 04/24/19 ACCOUNT: [id number] CONSULTING PHYSICIAN: JULIANA ANTONIO MD REFERRING PHYSICIAN: BARBARA MORGAN MD DATE OF CONSULTATION: 04/26/2019 ADDENDUM According to a nurse homeowner association manager, we are still awaiting legal guardianship papers from the patient's mother. We will give her 2 hours to produce such. If she cannot, however, and in light of the fact that patient is continuing to want to be discharged. At his capacity, he was able to tell me where he was, what his name was, what the date was, and very basic terms why he came into the hospital and he understood that the risk of living was perhaps heart failure or even . He said this and stated that despite that he wanted to leave and therefore, I believe he has a capacity to make that decision, although I attempted to discuss extensively with him that it was not the wisest decision to make. TRANSINT:[id number] Voice Confirmation ID: [id number] DOCUMENT ID: [id number] JULIANA ANTONIO MD at 1227 CC: [id number] DICTATION DATE: 04/26/19 1558 CASH SPECIALIST: 04/27/19 0046 DIS IN 04/28/19 [facility] [address] [place] [address]
--- NOTE | 2019-05-06 12:27 | CN ---
PATIENT NAME:MAIRA LYN MEDICAL RECORD: [id number] : 77 LOCATION:[facility] D.[id number] ADMIT DATE: 04/24/19 ACCOUNT: [id number] CONSULTING PHYSICIAN: JULIANA ANTONIO MD REFERRING PHYSICIAN: BARBARA MORGAN MD DATE OF CONSULTATION: 04/26/2019 HISTORY OF PRESENT ILLNESS: Mr. Lyn is a 43-year-old male who was admitted for increasing problems with shortness of breath. Notably, according to attending notes, he had left AMA on 2 other occasions earlier this month for the very same problems. I was consulted after the patient has again requested to be discharged. Nurses note that the patient was actively responding to internal stimuli last night and earlier today and they state that that patient's mother who states that she is the patient's legal guardian. The patient endorses that the mother is his legal guardian. The mother is insisting that he stay and not only staying for his physical treatment, but that he be placed in an inpatient facility as well. According to records, the patient has a history of ethanol abuse and cocaine use. A repeat UDS is being attempted as the patient did run out into the parking lot earlier in this admission, but so far he has refused. On interview, the patient was sitting on the side of his bed. He is stating that he wants to leave. He was able to state where he was, what the date was; however, he was minimizing any concerns about getting his medical treatment. He was mumbling to himself, but did respond to my questions. PAST PSYCHIATRIC HISTORY: Unsure. The patient is unable to answer. PAST MEDICAL HISTORY: Apparently per catheterization has a 10% to 15% ejection fraction and a Bumex drip is being attempted. DRUG AND ALCOHOL: Again by report, the patient recently has been in alcohol and cocaine user. SOCIAL HISTORY: According to the information, we have male patient, his mother is his legal guardian. We are awaiting paperwork. MENTAL STATUS EXAMINATION: This is a 43-year-old -Gabones[place] male, dressed and groomed casually and appropriately, semi-cooperative with the interview at best. His eye contact is poor to none. He was mumbling to himself. He did not get physically or verbally aggressive with me, but responded minimally to my questions. ASSESSMENT: Bipolar disorder per patient chart with psychotic features, ethanol and cocaine use disorder, multiple medical problems. PLAN: I have ordered Haldol 5 and Ativan 2 should the patient get verbally or physically aggressive. If the patient's mother is indeed his legal guardian, the patient's mother and only her can decide about his medical treatment or whether he can leave against medical advice. TRANSINT:[id number] Voice Confirmation ID: [id number] DOCUMENT ID: [id number] CONSULT REPORT [id number] MAIRA YLN,JULIANA Moya MD at 1227 CC: [id number] DICTATION DATE: 04/26/19 1730 INSTRUCTIONAL MEDIA SERVICES TECHNICIAN: 04/27/19 0145 DIS IN 04/28/19 [address] [place] [address]
== END 2019-04-28 12:15 | disposition left against medical advice (07) | DRG 304 ==
LOC: D.ER 12:51 → D.M2 18:59
PROVIDERS: Emergency Medicine; ADMIT Emergency Medicine; ATTEND Emergency Medicine
DX: I13.10 Hypertensive heart and chronic kidney disease without heart failure, with stage 1 through stage 4 chronic kidney disease, or unspecified chronic kidney disease (principal); I50.23 Acute on chronic systolic (congestive) heart failure; F17.213 Nicotine dependence, cigarettes, with withdrawal; I42.9 Cardiomyopathy, unspecified; I24.0 Acute coronary thrombosis not resulting in myocardial infarction; Z91.19 Patient's noncompliance with other medical treatment and regimen; N50.89 Other specified disorders of the male genital organs; E11.22 Type 2 diabetes mellitus with diabetic chronic kidney disease; N18.9 Chronic kidney disease, unspecified

== ENCOUNTER 2019-05-23 04:23 | Observation (INO) | payer MEDICARE ==
[~2019-05-23] VITALS: Ht 170.2 cm; Wt 94.3 kg
[2019-05-23 05:16] VITALS: BP 132/77
[2019-05-23 05:21] VITALS: BP 132/77
[2019-05-23 06:05] VITALS: BP 129/100
[2019-05-23 06:05] LABS: BASOPHILS 0.6 % (0-2); EOSINOPHILS 0 % (0-7); HEMATOCRIT 37.9 % (42.0-54.0); HEMOGLOBIN 12.2 g/dL (13.5-17.5); IMMATURE GRANULOCYTES 0.2 % (0-5); LYMPHOCYTES 25.9 % (15-50); MCH 25.6 pg (26.0-34.0); MCHC 32.2 g/dL (31.0-37.0); MCV 79.5 fL (80.0-100.0); MONOCYTES 8.1 % (2-11); NEUTROPHILS 65.2 % (40-80); PLATELET COUNT 255 10x3/uL (130-400); RBC 4.77 10x6/uL (4.20-6.10); RDW 17.3 % (11.5-14.5); WBC 8.7 10x3/uL (4.8-10.8)
[2019-05-23 06:06] LABS: APPEARANCE CLEAR (CLEAR); COLOR STRAW (YELLOW)
[2019-05-23 06:07] LABS: BILIRUBIN NEGATIVE (NEGATIVE); GLUCOSE NEGATIVE (NEGATIVE); KETONE NEGATIVE (NEGATIVE); NITRITE NEGATIVE (NEGATIVE); PROTEIN NEGATIVE (NEGATIVE); SPECIFIC GRAVITY 1.015 (1.005-1.020); UROBILINOGEN NORMAL (NORMAL)
[2019-05-23 06:40] LABS: ALBUMIN 3.5 g/dL (3.4-5.0); ANION GAP 14.5 mmol/L (8-16); BILIRUBIN - TOTAL 1.19 mg/dL (0.2-1.3); CALCIUM 8.8 mg/dL (8.5-10.1); CARBON DIOXIDE 26.2 mmol/L (21.0-32.0); CREATININE - SERUM 1.5 mg/dL (0.6-1.3); POTASSIUM - SERUM 3.7 mmol/L (3.5-5.1); PROTEIN - SERUM 8.5 g/dL (6.4-8.2)
[2019-05-23 06:45] LABS: APTT 35.1 SECONDS (22.8-39.4); INR 2.02 (0.85-1.17); PROTIME 22.2 SECONDS (11.6-15.0)
[2019-05-23 06:47] LABS: UDS - AMPHET NEGATIVE QUAL (NEGATIVE); UDS - BARB NEGATIVE QUAL (NEGATIVE); UDS - BENZO NEGATIVE QUAL (NEGATIVE); UDS - COCAINE POSITIVE QUAL (NEGATIVE); UDS - OPIATE NEGATIVE QUAL (NEGATIVE); UDS - PCP NEGATIVE QUAL (NEGATIVE); UDS - THC NEGATIVE QUAL (NEGATIVE)
[2019-05-23 06:53] LABS: TROPONIN-I 0.266 ng/mL (0.000-0.060)
--- NOTE | 2019-05-23 07:30 | NUR ---
RECIVED FROM ER PER BED. ADMIT ASSESSMENT PER RN
[2019-05-23 09:47] VITALS: BP 123/97; BMI 32.6
[2019-05-23 10:44] VITALS: BP 125/82
[2019-05-23 13:42] VITALS: BP 125/86
[2019-05-23 13:48] VITALS: Ht 170.2 cm; Wt 94.3 kg
--- NOTE | 2019-05-23 17:25 | NUR ---
PT WENT AMA. 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
--- NOTE | 2019-05-24 07:13 | MORECARE ---
CASE MANAGEMENT DISCHARGE SUMMARY PATIENT: MAIRA LYN UNIT: [id number] ADM DATE: 05/23/19 AGE: 43 : [birth year] SEX: M ROOM/BED: D.5964 AUTHOR: CARIE ENGLAND PHYSICIAN: REFERRING PHYSICIAN: KARLY JACKSON MD DATE OF SERVICE: 05/24/19 Discharge Plan Patient Name: [facility]YN [facility] [facility] 1975 Planned Disposition: Left Against Medical Advice Anticipated Discharge Date: 05/23/19 Discharge Date: 05/23/2019 Expected LOS: 1 Initial Reviewer: [id number] Initial Review Date: 05/24/2019 Generated: 05/24/19 8:12 am Patient Name: MAIRA LYN Page [id number] at 0713 All edits/amendments must be made on the electronic document DICTATION DATE: 05/24/19711 STOCK UNLOADER: JOSE 05/24/19711 RPT#: [id number] DC DATE:05/23/19 STATUS: DIS IN [facility] [address] [place] [address] END OF REPORT
== END 2019-05-23 17:27 | disposition left against medical advice (07) ==
LOC: D.ER 04:23 → OBSVTIME 06:23 → D.M2 06:23
PROVIDERS: Family Medicine; ADMIT Family Medicine; ATTEND Family Medicine
DX: I42.8 Other cardiomyopathies (principal); F20.9 Schizophrenia, unspecified; Z91.14 Patient's other noncompliance with medication regimen; N28.9 Disorder of kidney and ureter, unspecified; K21.9 Gastro-esophageal reflux disease without esophagitis; E11.9 Type 2 diabetes mellitus without complications; I11.0 Hypertensive heart disease with heart failure; I50.43 Acute on chronic combined systolic (congestive) and diastolic (congestive) heart failure; D50.9 Iron deficiency anemia, unspecified; E78.5 Hyperlipidemia, unspecified; F19.90 Other psychoactive substance use, unspecified, uncomplicated; F17.203 Nicotine dependence unspecified, with withdrawal